=== PATIENT | male | born 1945 | race Caucasian/White ===

== ENCOUNTER 2023-12-04 19:54 | Inpatient (IN) ==
[2023-12-04 20:58] LABS: Basophils # (auto) 0.03 K/uL (0.00-0.20); Basophils % (auto) 0.4 %; Eosinophils # (auto) 0.04 K/uL (0.00-0.50); Eosinophils % (auto) 0.5 %; Hematocrit (blood only) 29.2 % (42.0-52.0); Hemoglobin 10.7 g/dl (14.0-18.0); Immature Granulocytes # (auto) 0.03 K/uL (0.01-0.20); Immature Granulocytes % (auto) 0.4 %; Lymphocytes # (auto) 2.15 K/uL (1.20-3.40); Lymphocytes % (auto) 29.1 %; Mean Corpuscular Hemoglobin 33.1 pg (25.0-34.0); Mean Corpuscular Hgb Conc 36.6 g/dL (32.0-36.0); Mean Corpuscular Volume 90.4 fL (80.0-100.0); Mean Platelet Volume 10.4 fL (9.4-12.4); Monocytes # (auto) 0.34 K/uL (0.11-0.59); Monocytes % (auto) 4.6 %; Platelet Count 164 K/uL (130-400); RDW Coefficient of Variation 13.5 % (11.5-14.5); RDW Standard Deviation 44.8 fL (36.4-46.3); Red Blood Count 3.23 M/uL (4.70-6.10); White Blood Count 7.39 K/ul (4.8-10.8)
[2023-12-04 21:18] LABS: Anion Gap 9 (3-11); BUN Creatinine Ratio 25.4 (10-20); Blood Urea Nitrogen 17 mg/dl (6-23); Calcium 8.8 mg/dl (8.6-10.3); Carbon Dioxide 26 mmol/L (21-32); Chloride 105 mmol/L (98-107); Glucose 112 mg/dl (70-99(Fasting)); Potassium 2.9 mmol/L (3.5-5.1); Sodium 140 mmol/L (136-145)
[2023-12-04 21:24] LABS: Troponin I High Sensitivity 5.7 pg/ml (0-20)
[2023-12-04 21:28] LABS: Alanine Aminotransferase < 3 U/L (7-52); Albumin Globulin Ratio 2.5 (0.9-2); Albumin Level 4.3 gm/dl (3.4-5.0); Alkaline Phosphatase 63 U/L (34-104); Aspartate Aminotransferase 9 U/L (13-39); Globulin 1.7 gm/dl (2.5-4.0); Magnesium 1.6 mg/dl (1.7-2.4)
[2023-12-04 21:33] LABS: Thyroid Stimulating Hormone 1.908 uIu/ml (0.300-4.500)
[2023-12-04] MEDS: POTASSIUM CHLORIDE / WTR 10 MEQ/100 ML PLCT IV SCH (21:33)
[2023-12-04] MEDS: MAGNESIUM SULFATE / D5W 1 GM/100 ML BAG IV SCH (21:33)
[2023-12-04 21:41] LABS: Appearance Urine Clear (Clear); Bacteria Urine Automated None Seen (None Seen); Bilirubin Urine Negative (Negative); Blood Urine Negative (Negative); Color Urine Yellow; Epithelial Cell Urine Auto 0-2 /hpf (0-2); Glucose Urine UA Negative (Negative); Ketones Urine Trace (Negative); Leukocyte Esterase Urine 2+ (Negative); Nitrite Urine Negative (Negative); Protein Urine 1+ (Negative); Specific Gravity Urine 1.022 (1.000-1.030); Urobilinogen Urine Negative (Negative); WBC Urine Automated 21-50 /hpf (0-5); pH Urine 6.5 (4.5-7.5)
[2023-12-04] MEDS ORDERED: cefTRIAXone SODIUM 2,000 MG/50 ML BAG IV STA (21:48)
--- NOTE | 2023-12-04 22:04 | Emergency Department Note ---
Impression & Plan Vasovagal syncope, Parkinson's disease, Hypomagnesemia, Acute hypokalemia ED Provider Note CHIEF COMPLAINT: Syncope, incontinent of stool HISTORY OF PRESENT ILLNESS: This 78-year-old male patient with past medical history of Parkinson's disease, dementia presents to the emergency department with complaints of a syncopal episode. The patient states he remembers being concerned that he was going to have a bowel movement. He was at home with his who suffers from dementia as well. Patient's daughters arrived in the emergency department states her mother contacted her by phone at the restaurant and asked her to come home soon as possible. The patient was incontinent of loose stool and vomited x 1. At the time she came home, the patient was in the bathroom trying to clean himself up. Patient states he has had a syncopal episode in the past, approximately 10 to 15 years ago. Daughter mentions that the patient's color was off for most of the day, he stated he did not feel well. REVIEW OF SYSTEMS: A review of systems was performed with positives and pertinent negatives listed in the history of present illness. 10 systems were reviewed and are otherwise negative. ALLERGIES: see below MEDICATIONS: see below PMH: see below SOCIAL HISTORY: see below DDx: Viral gastroenteritis, dehydration, electrolyte abnormality, UTI, foodborne process, viral illness, cardiac arrhythmia among others. PHYSICAL EXAM: Vital signs reviewed. General: Chronically ill-appearing 78-year-old male, in no significant distress. HEENT: No scleral icterus, PERRLA, neck supple. Moist mucous membranes. Cardiovascular: Regular rate and rhythm, no extra sounds. Pulmonary: Clear to auscultation bilaterally, normal work of breathing. Abdomen: Soft, nontender, nondistended, positive bowel sounds. Musculoskeletal: Atraumatic, no peripheral edema. Neurologic: Patient awake alert and pleasantly confused. Unable to remember the details of the events preceding. Flat affect with baseline tremor. Skin: Warm, dry, no rash EMERGENCY DEPARTMENT COURSE/MDM: This patient was evaluated and appeared to be in no significant distress. IV access was obtained and laboratory work was drawn. The patient was placed on the home care rn. Nursing staff finished cleaning him up from his incontinence episode. Laboratory work was obtained and reveals a potassium of 2.9 with a magnesium of 1.6. 2 g of IV magnesium was ordered as well as 2, 10 MEq potassium riders. Patient's EKG reveals a sinus rhythm. Chest x-ray was performed and is clear. UA is indicative of infection. The patient was given 2 g of IV ceftriaxone. The case was discussed with Dr. Centeno of the hospitalist service who will evaluate the patient for admission and further management. Patient and his family were made aware of the plans and agreed. MONITORING: An order for cardiac monitoring was placed and the patient is noted to be in a normal sinus rhythm at 64 beats per minute. RADIOLOGY: Chest x-ray to my interpretation reveals no evidence of focal lung consolidation or failure. Normal mediastinal silhouette. Otherwise defer to radiology is over read. EKG: To my interpretation reveals a sinus bradycardia with a short MS interval at 59 bpm. QTc of 425. No PVC, no PAC. DISPOSITION: Admission Past Med/Surg History Problem List (Updated 12/07/23 @ 11:20 by DARBY Peters) Seborrheic dermatitis Wide-complex tachycardia Near syncope Acute hypokalemia (Acute) Hypomagnesemia (Acute) Parkinson's disease (Acute) Vasovagal syncope (Acute) Social History Smoking Status: Never smoker Hx Alcohol Use: No Hx Substance Use: No Preferred Language: Ecuadorean Communication Ability: Effective Aging Room Hand Required: No Beliefs That Will Affect Care: None Current Living Situation: Spouse and Family Feels Safe at Home: Yes Assistive Devices: Walker Allergies Allergies Allergy/AdvReac Type Severity Reaction Status Date / Time No Known Allergies Allergy Unverified 12/04/23 22:39 Home Meds Home Medications Medication Instructions Recorded Confirmed ascorbic acid (vitamin C) 250 mg 250 mg PO DAILY 12/04/23 12/04/23 tablet carbidopa 25 mg-levodopa 100 mg 1 tab PO UD 12/04/23 12/04/23 tablet docusate sodium 100 mg capsule 100 mg PO DAILY PRN Constipation 12/04/23 12/04/23 (Colace) polyethylene glycol 3350 17 gram 17 g PO DAILY PRN Constipation 12/04/23 12/04/23 oral powder packet (Miralax) Previous Rx's Medication Instructions Recorded lisinopril 10 mg tablet 10 mg PO QAM #30 tabs 12/09/23 metoprolol succinate 25 mg 12.5 mg (1/2 x 25 mg) PO QAM #30 12/09/23 tablet,extended release 24 hr tabs spironolactone 25 mg tablet 25 mg PO DAILY #30 tabs 12/09/23 triamcinolone acetonide 0.025 % 1 applic EXT BID PRN Rash/Itching 12/09/23 topical cream #15 grams Results & Data (ED) Vital Signs Vital Signs - 24 hr 12/04/23 20:02 12/04/23 20:11 12/04/23 20:16 Temperature 36.6 C Temperature Source Oral Pulse Rate - Lying Pulse Rate - Sitting Pulse Rate - Standing Pulse Rate 61 64 Respiratory Rate 15 Blood Pressure - Lying Blood Pressure - Sitting Blood Pressure- Standing Blood Pressure 151/84 H Blood Pressure Mean 106 Blood Pressure Position Semi-fowlers Pulse Oximetry 98 Oxygen Delivery Method Room Air Room Air Sepsis Recent Fever Within 48 Hours No Sepsis New/Unexplained Change in Mental Status No Sepsis Action Taken by Nursing No Action Required 12/04/23 20:34 Temperature Temperature Source Pulse Rate - Lying 63 Pulse Rate - Sitting 71 Pulse Rate - Standing 70 Pulse Rate Respiratory Rate Blood Pressure - Lying 140/69 Blood Pressure - Sitting 137/65 Blood Pressure- Standing 130/63 Blood Pressure Blood Pressure Mean Blood Pressure Position Pulse Oximetry Oxygen Delivery Method Sepsis Recent Fever Within 48 Hours Sepsis New/Unexplained Change in Mental Status Sepsis Action Taken by Assisted Medications Current Medication List: was personally reviewed by me Laboratory Data Attestation: I reviewed the patient's lab results. 12/07/23 05:49 12/07/23 05:49 Lab Results 12/04/23 12/04/23 12/04/23 Range/Units 20:30 20:32 21:15 WBC 7.39 (4.8-10.8) K/ul RBC 3.23 L (4.70-6.10) M/uL Hgb 10.7 L (14.0-18.0) g/dl Hct 29.2 L (42.0-52.0) % MCV 90.4 (80.0-100.0) fL MCH 33.1 (25.0-34.0) pg MCHC 36.6 H (32.0-36.0) g/dL RDW Std Deviation 44.8 (36.4-46.3) fL RDW Coeff of Radha 13.5 (11.5-14.5) % Plt Count 164 (130-400) K/uL MPV 10.4 (9.4-12.4) fL Immature Gran % (Auto) 0.4 % Neut % (Auto) 65.0 % Lymph % (Auto) 29.1 % [place] % (Auto) 4.6 % Eos % (Auto) 0.5 % Baso % (Auto) 0.4 % Neut # (Auto) 4.80 (1.40-6.50) K/uL Lymph # (Auto) 2.15 (1.20-3.40) K/uL [place] # (Auto) 0.34 (0.11-0.59) K/uL Eos # (Auto) 0.04 (0.00-0.50) K/uL Baso # (Auto) 0.03 (0.00-0.20) K/uL Immature Gran # (Auto) 0.03 (0.01-0.20) K/uL Sodium 140 (136-145) mmol/L Potassium 2.9 L (3.5-5.1) mmol/L Chloride 105 (98-107) mmol/L Carbon Dioxide 26 (21-32) mmol/L Anion Gap 9 (3-11) BUN 17 (6-23) mg/dl Creatinine 0.67 (0.6-1.4) mg/dl Est Cr Clr Drug Dosing 103.0 ml/min eGFR 96.77 BUN/Creatinine Ratio 25.4 H (10-20) Glucose 112 H (70-99(Fasting)) mg/dl POC Glucose 109 H (70-99) mg/dl Calcium 8.8 (8.6-10.3) mg/dl Magnesium 1.6 L (1.7-2.4) mg/dl Total Bilirubin 1.0 (0.2-1.0) mg/dl AST 9 L (13-39) U/L ALT < 3 L (7-52) U/L Alkaline Phosphatase 63 (34-104) U/L Troponin I High Sens 5.7 (0-20) pg/ml Total Protein 6.0 (6.0-8.3) gm/dl Albumin 4.3 (3.4-5.0) gm/dl Globulin 1.7 L (2.5-4.0) gm/dl Albumin/Globulin Ratio 2.5 H (0.9-2) TSH 1.908 (0.300-4.500) uIu/ml Urine Color Yellow Urine Appearance Clear (Clear) Urine pH 6.5 (4.5-7.5) Ur Specific [place] 1.022 (1.000-1.030) Urine Protein 1+ H (Negative) Urine Glucose (UA) Negative (Negative) Urine Ketones Trace H (Negative) Urine Blood Negative (Negative) Urine Nitrite Negative (Negative) Urine Bilirubin Negative (Negative) Urine Urobilinogen Negative (Negative) Ur Leukocyte Esterase 2+ H (Negative) Urine WBC (Auto) 21-50 H (0-5) /hpf Urine RBC (Auto) 3-5 H (0-2) /hpf U Hyaline Cast (Auto) 3-5 H (0-2) /lpf U Epithel Cells (Auto) 0-2 (0-2) /hpf Urine Bacteria (Auto) None Seen (None Seen) Administered Medications Discontinued Medications Acetaminophen (Acetaminophen 325 Mg Tab) 650 mg PO Q4H PRN PRN Reason: Pain or Fever Stop: 01/03/24 23:31 Last Admin: 12/08/23 11:29 Dose: 650 mg Documented By: JOSEF Ascorbic Acid (Ascorbic Acid 500 Mg Tab) 250 mg PO DAILY [facility] Stop: 01/04/24 08:59 Last Admin: 12/09/23 09:15 Dose: 250 mg Documented By: Admin: 12/08/23 08:46 Dose: 250 mg Documented By: Admin: 12/07/23 08:34 Dose: 250 mg Documented By: Admin: 12/06/23 08:09 Dose: 250 mg Documented By: Admin: 12/05/23 08:21 Dose: 250 mg Documented By: JUAN Carbidopa/Levodopa (Carbidopa/Levodopa 25/100mg Tab) 1.5 tab PO 0800,1200,1600 [facility] Stop: 01/04/24 07:59 Last Admin: 12/09/23 08:33 Dose: 1.5 tab Documented By: Admin: 12/08/23 16:43 Dose: 1.5 tab Documented By: Admin: 12/08/23 13:51 Dose: 1.5 tab Documented By: Admin: 12/08/23 08:45 Dose: 1.5 tab Documented By: Admin: 12/07/23 16:56 Dose: 1.5 tab Documented By: Admin: 12/07/23 13:10 Dose: 1.5 tab Documented By: Admin: 12/07/23 08:31 Dose: 1.5 tab Documented By: Admin: 12/06/23 16:05 Dose: 1.5 tab Documented By: Admin: 12/06/23 12:21 Dose: 1.5 tab Documented By: Admin: 12/06/23 08:07 Dose: 1.5 tab Documented By: Admin: 12/05/23 16:00 Dose: 1.5 tab Documented By: Admin: 12/05/23 11:10 Dose: 1.5 tab Documented By: Admin: 12/05/23 08:21 Dose: 1.5 tab Documented By: JAUN Enoxaparin Sodium (Enoxaparin Inj 40 Mg/0.4 Ml Syr) 40 mg SQ Q24H [facility]GEN[facility] Stop: 01/04/24 07:59 Last Admin: 12/09/23 08:34 Dose: 40 mg Documented By: Admin: 12/08/23 08:45 Dose: 40 mg Documented By: Admin: 12/07/23 08:36 Dose: 40 mg Documented By: Admin: 12/06/23 08:10 Dose: 40 mg Documented By: Admin: 12/05/23 08:21 Dose: 40 mg Documented By: JUAN Potassium Chloride ([place] / Wtr) 10 meq in 100 mls @ 100 mls/hr IV Q1H EUGENIA Stop: 12/04/23 23:29 Last Infusion: 12/04/23 23:41 Dose: Infused Documented By: Admin: 12/04/23 22:35 Dose: 100 mls/hr Documented By: Infusion: 12/04/23 22:33 Dose: Infused Documented By: Admin: 12/04/23 21:33 Dose: 100 mls/hr Documented By: NELSON Magnesium Sulfate/Dextrose (Magnesium Sulfate / D5w) 1 gm in 100 mls @ 200 mls/hr IV Q30M EUGENIA Stop: 12/04/23 22:29 Last Infusion: 12/04/23 23:41 Dose: Infused Documented By: Admin: 12/04/23 22:35 Dose: 200 mls/hr Documented By: Infusion: 12/04/23 22:03 Dose: Infused Documented By: Admin: 12/04/23 21:33 Dose: 200 mls/hr Documented By: NELSON Sodium Chloride (Nss) 1,000 mls @ 75 mls/hr IV .[id number] EUGENIA Stop: 12/05/23 12:51 Last Infusion: 12/05/23 11:11 Dose: Infused Documented By: Admin: 12/05/23 00:01 Dose: 75 mls/hr Documented By: ANUPAMA Ceftriaxone Sodium (Rocephin) 2,000 mg in 50 mls @ 100 mls/hr IV Q24H [facility] Stop: 12/15/23 00:00 Last Infusion: 12/05/23 00:32 Dose: Infused Documented By: Admin: 12/05/23 00:02 Dose: 100 mls/hr Documented By: ANUPAMA Magnesium Sulfate/Dextrose (Magnesium Sulfate / D5w) 1 gm in 100 mls @ 50 mls/hr IV ONE ONE Stop: 12/06/23 10:57 Last Infusion: 12/06/23 11:21 Dose: Infused Documented By: Admin: 12/06/23 09:18 Dose: 50 mls/hr Documented By: ORIN Lisinopril (Lisinopril 2.5 Mg Tab) [facility] Stop: 01/05/24 08:59 Last Admin: 12/06/23 08:50 Dose: 2.5 mg Documented By: ORIN Lisinopril (Lisinopril 5 Mg Tab) 5 [facility] [place] Stop: 01/06/24 08:59 Last Admin: 12/08/23 08:47 Dose: 5 mg Documented By: Admin: 12/07/23 08:33 Dose: 5 mg Documented By: ORIN Metoprolol Succinate (Metoprolol Succ 25mg Ext Rel Tab) 12.5 mg [facility] Stop: 01/05/24 13:29 Last Admin: 12/09/23 09:16 Dose: 12.5 mg Documented By: Admin: 12/08/23 08:46 Dose: 12.5 mg Documented By: Admin: 12/07/23 08:35 Dose: 12.5 mg Documented By: Admin: 12/06/23 14:35 Dose: 12.5 mg Documented By: ORIN Miscellaneous Information (Patient's Allergy Info Needs Entered) 1 each N/A NOW STA Stop: 12/04/23 22:28 Last Admin: 12/04/23 22:39 Dose: 1 each Documented By: NELSON Potassium Chloride (Potassium Chloride Pwd 20 Meq Pack) 40 meq PO NOW STA Stop: 12/04/23 22:25 Last Admin: 12/05/23 00:48 Dose: 40 meq Documented By: CR Potassium Chloride (Potassium Chloride Crtab 20 Meq Tabcr) 40 meq PO NOW STA Stop: 12/05/23 16:04 Last Admin: 12/05/23 16:34 Dose: 40 meq Documented By: JUAN Spironolactone (Spironolactone 25 Mg Tab) 25 mg PO DAILY [facility] Stop: 01/05/24 08:59 Last Admin: 12/09/23 09:15 Dose: 25 mg Documented By: Admin: 12/08/23 08:48 Dose: 25 mg Documented By: Admin: 12/07/23 08:34 Dose: 25 mg Documented By: Admin: 12/06/23 08:50 Dose: 25 mg Documented By: ORIN Triamcinolone Acetonide (Triamcinolone Acet 0.025% Cr 15 Gm Tube) 1 appln EXT BID PRN PRN Reason: pruritis Stop: 01/06/24 11:00 Last Admin: 12/07/23 13:10 Dose: 1 appln Documented By: ORIN Discharge Plan Visit Data Chief Complaint: Syncope Stated Complaint: SYNCOPE ED Provider: Peyton Castaneda Discharge Problem: Vasovagal syncope, Parkinson's disease, Hypomagnesemia, Acute hypokalemia Patient Disposition: Admitted As Inpatient Discharge Instructions Interventions: ED Discharge Assessment Last Done: 12/04/23 22:57 Discharge Problem: Parkinson's disease Qualifiers: Dyskinesia presence: with dyskinesia Fluctuating manifestations: with fluctuating manifestations Qualified Code(s): G20.B2 - Parkinson's disease with dyskinesia, with fluctuations
[2023-12-04] MEDS: Patient's ALLERGY Info needs ENTERED STA (22:39)
--- NOTE | 2023-12-04 22:50 | History & Physical Report ---
Date of Service December 04, 2023 Assessment & Plan (1) Near syncope: Plan: 78-year-old male with past medical history significant for Parkinson disease who recently moved with his to [facility] from [facility] and currently living with his daughter and the plan for assisted living soon presents because of fall and near syncope. As per patient he fell in the hallway once. And was also little woozy and almost passing out. When he fell he did not hit his head. Question of loss of consciousness but patient declines it. Patient is able to give his history. Currently resting comfortably and hemodynamically stable. Denies any headache. Vision is okay. No runny nose or sore throat or cough. No fevers. Appetite is okay. No difficulty swallowing. No chest pain or shortness of. No nausea. No abdominal pain. Somewhat constipated. Micturating okay. History of syncope and hypertension.. As per PCP notes losartan/ hydrochlorothiazide and Flomax was discontinued due to orthostatic hypotension. As per PCP notes symptoms stable off of Flomax for BPH. And hypertension is stable off of losartan hydrochlorothiazide. Moderate cognitive impairment with Mini-Mental exam 1530. Near syncope Fall Will check orthostatics Gentle fluids Will get echo Follow repeat labs Monitor in med/telemetry PT OT when stable Parkinson disease Continues home medications UTI Possibly contributing to symptoms On Rocephin Will follow cultures Hypokalemia and hypomagnesia Will replace Follow repeat labs Constipation Continue stool softeners as needed History of vitamin B12 deficiency Gets B12 shots Anemia Hemoglobin 10.7 Will check stool for Hemoccult Iron studies, vitamin B12 folate levels Follow labs DVT prophylaxis Lovenox Disposition Med/telemetry Full code. History of Present Illness Chief Complaint: Near syncope and fall Primary Care Provider: DARBY Castle 78-year-old male with past medical history significant for Parkinson disease who recently moved with his to [facility] from [facility] and currently living with his daughter and the plan for assisted living soon presents because of fall and near syncope. As per patient he fell in the hallway once. And was also little woozy and almost passing out. When he fell he did not hit his head. Question of loss of consciousness but patient declines it. Patient is able to give his history. Currently resting comfortably and hemodynamically stable. Denies any headache. Vision is okay. No runny nose or sore throat or cough. No fevers. Appetite is okay. No difficulty swallowing. No chest pain or shortness of. No nausea. No abdominal pain. Somewhat constipated. Micturating okay. History of syncope and hypertension.. As per PCP notes losartan/ hydrochlorothiazide and Flomax was discontinued due to orthostatic hypotension. As per PCP notes symptoms stable off of Flomax for BPH. And hypertension is stable off of losartan hydrochlorothiazide. Moderate cognitive impairment with Mini-Mental exam . Past medical history. As mentioned above. Past surgical history. No surgical history on file. Social history. . No smoking. Alcohol rarely. No drug use Family history. Mother had dementia. Father had heart attack. Allergies Allergy/AdvReac Type Severity Reaction Status Date / Time No Known Allergies Allergy Unverified 12/04/23 22:39 Home Medications Medication Instructions Recorded Confirmed Type ascorbic acid (vitamin C) 250 mg 250 mg PO DAILY 12/04/23 12/04/23 History tablet carbidopa 25 mg-levodopa 100 mg 1 tab PO UD 12/04/23 12/04/23 History tablet docusate sodium 100 mg capsule 100 mg PO DAILY PRN Constipation 12/04/23 12/04/23 History (Colace) polyethylene glycol 3350 17 gram 17 g PO DAILY PRN Constipation 12/04/23 12/04/23 History oral powder packet (Miralax) Past Med/Surg History Problem List (Updated 12/04/23 @ 22:47 by Andrew Centeno MD) Near syncope Acute hypokalemia (Acute) Hypomagnesemia (Acute) Parkinson's disease (Acute) Vasovagal syncope (Acute) Social History Smoking Status: Never smoker Hx Alcohol Use: No Hx Substance Use: No Preferred Language: Bengali Communication Ability: Effective Director Of Content And Programming Required: No Beliefs That Will Affect Care: None Current Living Situation: Spouse and Family Other Information That Helps Us Care for You: No Feels Safe at Home: Yes Safety Concerns: Feels Safe At This Time Assistive Devices: None Review of Systems Review of Systems: All systems reviewed & are unremarkable except as noted in HPI & below Physical Exam Physical Exam: General- Not in acute distress Head- atraumatic Eyes- PERRL. ENT- oropharynx clear Neck- supple, no JVD. Lungs- clear to auscultation no wheezing or crackles Heart- regular rate and rhythm; no murmur, no gallop. Abdomen- normal bowel sounds, soft, nontender, no distension Extremities- no pretibial edema, no erythema seen Neuro- alert, oriented PERRL, no facial palsy; no dysarthria; moves extremities power 4-5/5 in all extremities Results & Data Results & Data Vital Signs (Past 12 Hours) Vital Signs Temp Pulse Resp BP Pulse Ox O2 Del Method 12/04/23 20:16 Room Air 12/04/23 20:11 64 12/04/23 20:02 36.6 C 61 15 151/84 H 98 Room Air Diagnostic Findings Laboratory Results WBC 7.39 K/ul (4.8-10.8) 12/04/23 20:30 RBC 3.23 M/uL (4.70-6.10) L 12/04/23 20:30 Hgb 10.7 g/dl (14.0-18.0) L 12/04/23 20:30 Hct 29.2 % (42.0-52.0) L 12/04/23 20:30 MCV 90.4 fL (80.0-100.0) 12/04/23 20:30 MCH 33.1 pg (25.0-34.0) 12/04/23 20:30 MCHC 36.6 g/dL (32.0-36.0) H 12/04/23 20:30 RDW Std Deviation 44.8 fL (36.4-46.3) 12/04/23 20:30 RDW Coeff of Radha 13.5 % (11.5-14.5) 12/04/23 20:30 Plt Count 164 K/uL (130-400) 12/04/23 20:30 MPV 10.4 fL (9.4-12.4) 12/04/23 20:30 Immature Gran % (Auto) 0.4 % 12/04/23 20:30 Neut % (Auto) 65.0 % 12/04/23 20:30 Lymph % (Auto) 29.1 % 12/04/23 20:30 [place] % (Auto) 4.6 % 12/04/23 20:30 Eos % (Auto) 0.5 % 12/04/23 20:30 Baso % (Auto) 0.4 % 12/04/23 20:30 Neut # (Auto) 4.80 K/uL (1.40-6.50) 12/04/23 20:30 Lymph # (Auto) 2.15 K/uL (1.20-3.40) 12/04/23 20:30 [place] # (Auto) 0.34 K/uL (0.11-0.59) 12/04/23 20:30 Eos # (Auto) 0.04 K/uL (0.00-0.50) 12/04/23 20:30 Baso # (Auto) 0.03 K/uL (0.00-0.20) 12/04/23 20:30 Immature Gran # (Auto) 0.03 K/uL (0.01-0.20) 12/04/23 20:30 Sodium 140 mmol/L (136-145) 12/04/23 20:30 Potassium 2.9 mmol/L (3.5-5.1) L 12/04/23 20:30 Chloride 105 mmol/L (98-107) 12/04/23 20:30 Carbon Dioxide 26 mmol/L (21-32) 12/04/23 20:30 Anion Gap 9 (3-11) 12/04/23 20:30 BUN 17 mg/dl (6-23) 12/04/23 20:30 Creatinine 0.67 mg/dl (0.6-1.4) 12/04/23 20:30 Est Cr Clr Drug Dosing 103.0 ml/min 12/04/23 20:30 eGFR 96.77 12/04/23 20:30 BUN/Creatinine Ratio 25.4 (10-20) H 12/04/23 20:30 Glucose 112 mg/dl (70-99(Fasting)) H 12/04/23 20:30 POC Glucose 109 mg/dl (70-99) H 12/04/23 20:32 Calcium 8.8 mg/dl (8.6-10.3) 12/04/23 20:30 Magnesium 1.6 mg/dl (1.7-2.4) L 12/04/23 20:30 Total Bilirubin 1.0 mg/dl (0.2-1.0) 12/04/23 20:30 AST 9 U/L (13-39) L 12/04/23 20:30 ALT < 3 U/L (7-52) L 12/04/23 20:30 Alkaline Phosphatase 63 U/L (34-104) 12/04/23 20:30 Troponin I High Sens 5.7 pg/ml (0-20) 12/04/23 20:30 Total Protein 6.0 gm/dl (6.0-8.3) 12/04/23 20:30 Albumin 4.3 gm/dl (3.4-5.0) 12/04/23 20: Globulin 1.7 gm/dl (2.5-4.0) L 12/04/23 20:30 Albumin/Globulin Ratio 2.5 (0.9-2) H 12/04/23 20:30 TSH 1.908 uIu/ml (0.300-4.500) 12/04/23 20:30 Urine Color Yellow 12/04/23 21:15 Urine Appearance Clear (Clear) 12/04/23 21:15 Urine pH 6.5 (4.5-7.5) 12/04/23 21:15 Ur Specific [place] 1.022 (1.000-1.030) 12/04/23 21:15 Urine Protein 1+ (Negative) H 12/04/23 21:15 Urine Glucose (UA) Negative (Negative) 12/04/23 21:15 Urine Ketones Trace (Negative) H 12/04/23 21:15 Urine Blood Negative (Negative) 12/04/23 21:15 Urine Nitrite Negative (Negative) 12/04/23 21:15 Urine Bilirubin Negative (Negative) 12/04/23 21:15 Urine Urobilinogen Negative (Negative) 12/04/23 21:15 Ur Leukocyte Esterase 2+ (Negative) H 12/04/23 21:15 Urine WBC (Auto) 21-50 /hpf (0-5) H 12/04/23 21:15 Urine RBC (Auto) 3-5 /hpf (0-2) H 12/04/23 21:15 U Hyaline Cast (Auto) 3-5 /lpf (0-2) H 12/04/23 21:15 U Epithel Cells (Auto) 0-2 /hpf (0-2) 12/04/23 21:15 Urine Bacteria (Auto) None Seen (None Seen) 12/04/23 21:15 Code Status & VTE Plan Code Status ECG. Sinus bradycardia with short NE rate of 59. No acute ST changes seen. VTE Prophylaxis Plan VTE Prophylaxis will be ordered: Yes
--- OUTSIDE RECORDS SUMMARY | 2023-12-04 23:13 | External Medical Summary | Summary of Care ---
Author Name Unknown Organization [facility] Address [address] [place] [address] Phone [phone] Care Team Providers Care Tufting Machine Operator Name Role Phone Jennifer Modi Primary Care Provider Reason for Visit * Reason Onset Date Comments Medication Refill 11/21/2023 Encounter Details Date Type Department Care Team (Late st Contact Info) Description 11/21/2023 Refill NeurologyAlex [address] [place] [address] Mee Bradley PA-C [address] [facility] [address] Allergies No known active allergiesdocumented as of this encounter (statuses as of 11/21/2023) Medications Medication Sig Dispensed Refills Start Date End Date Status Acetaminophen 500 MG Oral Tablet (Tylenol) Take 1 Tablet by mouth every 6 hours as needed. Active Docusate Sodium 100 MG Oral Capsule (Colace) Take 1 Capsule by mouth as needed for Constipation. Active Polyethylene Glycol 3350 4 GM Oral Packet Take by mouth as needed for Constipation. Active Vitamin C 250 MG Oral Tablet (Ascorbic Acid) Take 1 Tablet by mouth in the morning. Active Carbidopa-Levodo pa 25-100 MG Oral Tablet (Sinemet) Take 1.5 tablets at 8am, 12pm and 4pm. See office instructions for taper. 405 Tablet 2 11/21/2023 Active Carbidopa-Levodo pa 25-100 MG Oral Tablet (Sinemet) Take 1.5 tablets at 8am, 12pm and 4pm. See office instructions for taper. 135 Tablet 2 10/27/2023 4 Discontinue d(Refill) Hospital, Clinic, or Other Facility Administered Medication Ordered Dose Route Frequency Start Date End Date Status Vitamin B-12 (Cyanocobalamin) inj 1,000 mcgIndications:Vitamin B 12 deficiency 1000 mcg IM [id number] 10/27/2023 09/27/2024 Active documented as of this encounter (statuses as of 11/21/2023) Active Problems Problem Noted Date Diagnosed Date Parkinson's disease 10/21/2023 documented as of this encounter (statuses as of 11/21/2023) Immunizations Name Administration Dates Next Due COVID-19 mRNA, LNP-s, No Pre serve, 2-Dose Series (Moderna) 06/08/2021,12/14/2020,05/06/2020,04/08 COVID-19, MRNA-LNP, 23-24, P F, 50 MCG/0.5 mL, 12 YRS AND ABOVE, IM (MODERNA-Spikevax) 11/13/2022 Covid-19, Mrna, Lnp-s, Pf, B ivalent, 50 Mcg, IM, 12 yrs and above (Moderna) 11/16/2021 Pneumococcal Conjugate Vacc, 13 Valent (Prevnar) 02/27/2015 Pneumococcal Conjugate Vacci ne, 20-valent ([id number]) 12/13/2022 Pneumococcal Polysaccharide PPV23 (Pneumovax) 10/29/2008 Seasonal Influenza Virus Vac cine, Unspecified Formulation 11/24/2022,11/28/2021,11/28/2020,11/03,12/15/2016 Seasonal Influenza, High Dos e, Trivalent, PF, IM (Fluzone HD) 11/21/2023 TDAP (age 10 and older)(Boostrix) 08/30/2012,02/2008 Varicella Zoster Vaccine (Adult) 10/29/2008 Zoster Vaccine Recombinant (Shingrix) ,03/12/2018,01/03/2018,10/04 documented as of this encounter Social History Tobacco Use Types Packs/Day Years Used Date Smoking Tobacco: Never Smokeless Tobacco: Never Alcohol Use Standard Drinks/Week Comments Yes 0 (1 standard drink = 0.6 oz pur e alcohol) very rarely Utilities Answer Date Recorded Do you have trouble paying y our heating, water, or electric bill? (Adult - for ages 18 years and over) Not on file 09/26/2023 Is your family able to pay t he heat, water, or electric bill? (Household - for ages 0-17 years) Not on file 09/26/2023 Does your family have access to good internet? (Household - for ages 0-17 years) Not on file 09/26/2023 Social Connections Answer Date Recorded How often do you feel lonely or isolated from those around you? (Adult - for ages 18 years and over) Not on file 09/26/2023 Sex and Gender Information Value Date Recorded Sex Assigned at Not on file Gender Identity Not on file Sexual Orientation Not on file Job Start Date Occupation Industry Not on file Not on file Not on file documented as of this encounter Miscellaneous Notes * Telephone Encounter - Mee Bradley PA-C - 11/21/2023 9:29 AM EDTSigned Prescriptions: Disp Refills Carbidopa-Levodopa 25-100 MG Oral Tablet (*405 Ta*2 Sig: Take 1.5 tablets at 8am, 12pm and 4pm. See office instructions for taper. Authorizing Provider: MEE BRADLEY * Telephone Encounter - Beverly Ames LPN - 11/21/2023 8:59 AM EDT Pharmacy requesting 90 day supply documented in this encounter Plan of Treatment Upcoming Encounters Date Type Department Care Team (Late st Contact Info) Description 11/21/2023 11:00 AM EDT Immunization Ancillary [facility] [address] [address] Nurse Yandel Lee [address] [place] [id number] Need for prophylactic vaccination and inoculation against influenza* 01/12/2024 7:00 AM EST Office Visit Neurology [facility] [address] [place] [address] Mee Bradley PA-C [address] [facility] [place] [address] Health Maintenance Due Date Last Done Comments Depression Screening 1957 Hepatitis C Screening 07/29/1963 Adult Wellness Visit 07/29/2013 DTap/Tdap Vaccines (3 - Td or Tdap) 08/30/2022 08/30/2012, 11/21/2008 COVID-19 Vaccine ( season) 2023 11/13/2022, 11/16/2021, 06/08/2021, Additional history exists Zoster Vaccines Completed 03/16/2018, 02/22, 01/03/2018, Additional history exists Pneumococcal Vaccine: 65+ Years Completed 12/13/2022, 02/27/2015, 10/29/2008 Influenza Vaccine (FLU shot) Completed , 11/24/2022, 11/28/2021, Additional history exists HPV (Gardasil) Vaccine Aged Out No lo nger eligible based on patient's age to complete this topic Hepatitis B Vaccine Aged Out No longe r eligible based on patient's age to complete this topic MENINGOCOCCAL (MENACTRA/MENVEO) Aged Out No longer eligible based on patient's age to complete this topic documented as of this encounter Medical Devices Not on filedocumented as of this encounter Care Teams Tufting Machine Operator Relationship Specialty Start Date End Date Jennifer Modi CRNP [address] [place] [address] PCP - General Nurse Practitioner 10/21/23 documented as of this encounter
--- OUTSIDE RECORDS SUMMARY | 2023-12-04 23:13 | External Medical Summary | Summary of Care ---
Author Name Unknown Organization [facility] Address [address] [place] [address] Phone [phone] Care Team Providers Care [employer] Comb[employer] Teacher Name Role Phone Jennifer Modi Primary Care Provider Reason for Referral * Evaluate & Treat - Unlimited Visits (Within 10 days (routine)) - Authorized Specialty Diagnoses / Procedures Referred By Heather tsang Referred To Contact Neurology Diagnoses Parkinson's disease, unspecified whether dyskinesia present, unspecified whether manifestations fluctuate (HCC) Jennifer Modi CRNP [address] [facility] [address] Referral ID Status Reason Start Date Expiration Date Visits Requested Visits Authorized [id number] Authorized Specialty Services Required 10/21/[phone] Question Answer Referral Priority Within 10 days (routine) Where should this appointment be scheduled? [facility] Is this referral being placed for insurance purposes ONLY No, patient needs appointment [facility] NEUROLOGY REFERRAL QUESTIONS Other Conditions Comments Parkinson's disease Reason for Visit * Reason Comments NEW PATIENT Patient presents in office today to establish care -- does have concerns that they would like to discuss. Encounter Details Date Type Department Care Team (Latest Contact Info) Description 10/21/2023 7:00 AM EDT Office Visit Family Practice [facility] [address] [place] [address] Jennifer Modi CRNP [address] [place] [address] Parkinson's disease, unspecified whether dyskinesia present, unspecified whether manifestations fluctuate (HCC)*; Moderate cognitive impairment; HTN, goal below 140/90; Asymptomatic bilateral carotid artery stenosis; Orthostatic hypotension; History of syncope; Iron deficiency anemia, unspecified iron deficiency anemia type; Vitamin D deficiency; Enlarged prostate; Constipation, unspecified constipation type Allergies No known active allergiesdocumented as of this encounter (statuses as of 10/21/2023) Medications Medication Sig Dispensed Refills Start Date [...] Tablet by mouth in the morning. Active Carbidopa-Levodopa 25-100 MG Oral Tablet (Sinemet) Take 2 Tablets by mouth in the morning and 2 Tablets at noon and 2 Tablets before bedtime. Active documented as of this encounter (statuses as of 10/21/2023) Active Problems Problem Noted Date Diagnosed Date Parkinson's disease 10/21/2023 documented as of this encounter (statuses as of 10/21/2023) Immunizations Name Administration Dates Next Due COVID-19 mRNA, LNP-s, No Pre serve, 2-Dose Series (Moderna) 06/08/2021,12/14/2020,05/06/2020,04/08 COVID-19, MRNA-LNP, 23-24, P F, 50 MCG/0.5 mL, 12 YRS AND ABOVE, IM (MODERNA-Spikevax) 11/13/2022 Covid-19, Mrna, Lnp-s, Pf, B ivalent, 50 Mcg, IM, 12 yrs and above (Moderna) 11/16/2021 Pneumococcal Conjugate Vacc, 13 Valent (Prevnar) 02/27/2015 Pneumococcal Conjugate Vacci ne, 20-valent ([id number]) 12/13/2022 Pneumococcal Polysaccharide PPV23 (Pneumovax) 10/29/2008 Seasonal Influenza Virus Vac cine, Unspecified Formulation 11/24/2022,11/28/2021,11/28/2020,11/03,12/15/2016 TDAP (age 10 and older)(Boostrix) 08/30/2012,02/2008 Varicella Zoster Vaccine (Adult) 10/29/2008 Zoster Vaccine Recombinant (Shingrix) ,03/12/2018,01/03/2018,10/04 documented as of this encounter Social History Tobacco Use Types Packs/Day Years Used Date Smoking Tobacco: Never Smokeless Tobacco: Never Tobacco Cessation:Counseling Given: Not Answered Alcohol Use Standard Drinks/Week Comments Yes 0 [...] on file documented as of this encounter Last Filed Vital Signs Vital Sign Reading Time Taken Comments Blood Pressure 128/68 10/21/2023 7:08 AM EDT Pulse 64 10/21/2023 7:08 AM EDT Temperature - - Respiratory Rate 16 10/21/2023 7:08 AM EDT Oxygen Saturation 98% 10/21/2023 7:08 AM EDT Inhaled Oxygen Concentration - - Weight 85.7 kg (189 lb) 10/21/2023 7:08 AM EDT Height 181.6 cm (5' 11.5") 10/21/2023 7:08 AM ED T Body Mass Index 25.99 10/21/2023 7:08 AM EDT documented in this encounter Progress Notes * Jennifer Modi CRNP - 10/21/2023 7:06 AM EDT New patient Family Medicine Visit CC: Chief Complaint Patient presents with NEW PATIENT Patient presents in office today to establish care -- does have concerns that they would like to discuss. History of Present Illness: Jos Khan is a 78 year old male presenting with his and daughter today to establish care. [facility] Lives with daughter in [place]. Parkinsonism- last neuro was July 2023- Increased sinemet- felt like this did not help much. [place] like PT and ST did not help much. +LEFT ARM Tremor +stuttering -Recent falls Cardiology-for HTN and syncope ECHO was reassuring EKG in june reasuring Losartan/hctz was discontinued. Had scheduled follow up appt in January. Medications have been adjusted flomax stopped and losartan hctz stopped due to orthostatic hypotension Social History Socioeconomic History Marital status: Spouse name: Not on file Number of children: Not on file Years of education: Not on file Highest education level: Not on file Occupational History Not on file Tobacco Use Smoking status: Not on file Smokeless tobacco: Not on file Substance and Sexual Activity Alcohol use: Not on file Drug use: Not on file Sexual activity: Not on file Other Topics Concern Not on file Social History Narrative Not on file Social Determinants of Health Financial Resource Strain: Not on file Food Insecurity: Not on file Transportation Needs: Not on file Social Connections: Unknown (09/26/2023) Social Connections How often do you feel lonely or isolated from those around you? (Adult - for ages 18 years and over): Not on file Housing Stability: Not on file PMH: No past medical history on file. No past surgical history on file. No current outpatient medications on file. No current facility-administered medications for this visit. Review of patient's allergies indicates: No Known Allergies There is no immunization history on file for this patient. Review of Systems: Review of Systems Constitutional: Negative for fatigue and fever. Respiratory: Negative for shortness of breath. Cardiovascular: Negative for chest pain. Gastrointestinal: Negative for abdominal pain. Musculoskeletal: Positive for gait problem. Neurological: Positive for tremors and speech difficulty. Negative for dizziness, syncope, light-headedness, numbness and headaches. Psychiatric/Behavioral: Negative for sleep disturbance. Physical Exam: Filed Vitals: 10/21/23 0708 BP: 128/68 Pulse: 64 Resp: 16 SpO2: 98% Weight: 85.7 kg (189 lb) Height: 1.816 m (5' 11.5") Physical Exam Vitals and nursing note reviewed. HENT: Head: Normocephalic. Nose: Nose normal. Eyes: Pupils: Pupils are equal, round, and reactive to light. Cardiovascular: Rate and Rhythm: Normal rate and regular rhythm. Pulmonary: Effort: Pulmonary effort is normal. Breath sounds: Normal breath sounds. Abdominal: General: Bowel sounds are normal. Palpations: Abdomen is soft. There is no mass. Tenderness: There is no abdominal tenderness. Musculoskeletal: General: Normal range of motion. Cervical back: Normal range of motion. Skin: General: Skin is warm and dry. Neurological: General: No focal deficit present. Mental Status: He is alert and oriented to person, place, and time. Motor: Tremor present. Gait: Gait abnormal. Comments: Shuffling, slow gait Stutters with speech Psychiatric: Mood and Affect: Mood normal. Behavior: Behavior normal. Thought Content: Thought content normal. Cognition and Memory: Cognition is impaired. Memory is impaired. Judgment: Judgment normal. Assessment and Plan: 1. Parkinson's disease, unspecified whether dyskinesia present, unspecified whether manifestations fluctuate (HCC) Continue sinemet Declines PT/OT/ST Lives with daughter in basement apt He is fall risk - ADULT NEUROLOGY REFERRAL OP - COMPREHENSIVE METABOLIC PANEL; Future - COMPREHENSIVE METABOLIC PANEL Forms for ezra completed 2. Moderate cognitive impairment Mini mental is 15/30(SLUMS) Suspected dementia DAUGHTER WORKING on updated poa 3. HTN, goal below 140/90 Stable off of losartan /hctz - EKG; Future 4. Asymptomatic bilateral carotid artery stenosis [facility] 5. Orthostatic hypotension Resolved with stopping flomax and losartan hctz 6. History of syncope None since june 7. Iron deficiency anemia, unspecified iron deficiency anemia type recheck - CBC WITH WBC DIFFERENTIAL AND ANEMIA REFLEX WORKUP; Future - CBC WITH WBC DIFFERENTIAL AND ANEMIA REFLEX WORKUP - RETICULOCYTE PANEL 8. Vitamin D deficiency recheck - 25-HYDROXY VITAMIN D; Future - 25-HYDROXY VITAMIN D 9. Enlarged prostate Symptoms stable off of flomax 10. Constipation, unspecified constipation type Continue colace daily Continue miralax I have advised the patient to call our office incase of any worsening or new symptoms. I spent a total of Greater than 55 mins (exact time 85 mins) on the date of service in preparation,delivery, and documentation of the care provided to Jos Khan excluding any time spent inthe performance of separately billed services. Hayden, MSN, DARBY [facility] documented in this encounter Nursing Notes * Apolonia Potter MED ASSIST - 10/21/2023 7:03 AM EDT The patient has been properly identified by confirmation of name and date of . Chief Complaint Patient presents with NEW PATIENT Patient presents in office today to establish care -- does have concerns that they would like to discuss. documented in this encounter Plan of Treatment Upcoming Encounters Date Type Department Care Team (Late st Contact Info) Description 10/26/2023 7:30 AM EDT [facility] [address] [facility] [place] [id number] 10/27/2023 8:00 AM EDT Office Visit Neu[facility] [address] [facility] [address] Mee Bradley PA-C 21 [facility] [place] [address] Pending Results Name Type Priority Associated Diagnoses Date /Time COMPREHENSIVE METABOLIC PANEL Lab Routine Parkinson's disease, unspecified whether dyskinesia present, unspecified whether manifestations fluctuate (HCC) 10/21/2023 8:14 AM EDT CBC WITH WBC DIFFERENTIAL AND ANEMIA REFLEX WORKUP Lab Routine Iron deficiency anemia, unspecified iron deficiency anemia type 10/21/2023 8:14 AM EDT 25-HYDROXY VITAMIN D Lab Routine Vitamin D deficiency 10/21/2023 8:14 AM EDT ANEMIA REFLEX CHEMISTRY HOLD Lab Routine Iron deficiency anemia, unspecified iron deficiency anemia type 10/21/2023 8:14 AM EDT RETICULOCYTE PANEL Lab Routine Iron deficiency anemia, unspecified iron deficiency anemia type 10/21/2023 8:14 AM EDT Scheduled Orders Name Type Priority Associated Diagnoses Orde r Schedule COMPREHENSIVE METABOLIC PANEL Lab Routine Parkinson's disease, unspecified whether dyskinesia present, unspecified whether manifestations fluctuate (HCC) Expected: 10/21/2023 (Approximate), Expires: 10/20/2024 CBC WITH WBC DIFFERENTIAL AND ANEMIA REFLEX WORKUP Lab Routine Iron deficiency anemia, unspecified iron deficiency anemia type Expected: 10/21/2023 (Approximate), Expires: 10/20/2024 25-HYDROXY VITAMIN D Lab Routine Vitamin D deficiency Expected: 10/21/2023 (Approximate), Expires: 10/20/2024 EKG EKG Routine HTN, goal below 140/90 Expected: 10/21/2023 (Approximate), Expires: 11/20/2024 VASC DUPLEX CAROTID BILAT Medical Imaging Routine Asymptomatic bilateral carotid artery stenosis Ordered: 10/21/2023 Scheduled Referrals Name Type Priority Associated Diagnoses Orde r Schedule ADULT NEUROLOGY REFERRAL OP Referral Within 10 days (routine) Parkinson's disease, unspecified whether dyskinesia present, unspecified whether manifestations fluctuate (HCC) Ordered: 10/21/2023 Health Maintenance Due Date Last Done Comments Depression Screening 1957 Hepatitis C Screening 07/29/1963 Adult Wellness Visit 07/29/2013 DTap/Tdap Vaccines (3 - Td or Tdap) 08/30/2022 08/30/2012, 11/21/2008 COVID-19 Vaccine ( season) 2023 11/13/2022, 11/16/2021, 06/08/2021, Additional history exists Influenza Vaccine (FLU shot) (#1) 2023 11/24/2022, 11/28/2021, 11/28/2020, Additional history exists Zoster Vaccines Completed 03/16/2018, 02/22, 01/03/2018, Additional history exists Pneumococcal Vaccine: 65+ Years Completed 12/13/2022, 02/27/2015, 10/29/2008 HPV (Gardasil) Vaccine Aged Out No lo nger eligible based on patient's age to complete this topic Hepatitis B Vaccine Aged Out No longe r eligible based on patient's age to complete this topic MENINGOCOCCAL (MENACTRA/MENVEO) Aged Out No longer eligible based on patient's age to complete this topic documented as of this encounter Medical Devices Not on filedocumented as of this encounter Procedures Procedure Name Priority Date/Time Associated Diagnosis Comments ANEMIA CBC Routine 10/21/2023 8:14 AM EDT Iron deficiency anemia, unspecified iron deficiency anemia type DIFFERENTIAL, AUTOMATED Routine 10/21/2023 8:14 AM EDT Iron deficiency anemia, unspecified iron deficiency anemia type documented in this encounter Results * (ABNORMAL) DIFFERENTIAL, AUTOMATED (10/21/2023 8:14 AM EDT) WBC 3.79(L) 4.00 - 10.80 K/uL 10/21/2023 8:41 AM EDT [facility] Neutrophils % 44.9 40.0 - 75.0 % 10/21/2023 8:41 AM EDT [facility] Lymphocytes % 46.7(H) 18.0 - 42.0 % 10/21/2023 8:41 AM EDT [facility] Monocytes % 6.6 1.0 - 11.0 % 10/21/2023 8:41 AM EDT [facility] Eosinophils % 1.3 0.0 - 6.0 % 10/21/2023 8:41 AM EDT [facility] Basophils % 0.5 0.0 - 2.0 % 10/21/2023 8:41 AM EDT [facility] Absolute Neutrophils 1.70(L) 1.80 - 7.70 K/uL 10/21/2023 8:41 AM EDT [facility] Absolute Lymphocytes 1.77 1.00 - 4.80 K/ul 10/21/2023 8:41 AM EDT [facility] Absolute Monocytes 0.25 0.00 - 1.10 K/uL 10/21/2023 8:41 AM EDT [facility] Absolute Eosinophils 0.05 0.00 - 0.70 K/uL 10/21/2023 8:41 AM EDT [facility] Absolute Basophils 0.02 0.00 - 0.20 K/uL 10/21/2023 8:41 AM EDT [facility] Blood Venous blood specimen / Unknown Venipuncture / Unknown 10/21/2023 8:14 AM EDT 10/21/2023 8:14 AM EDT Jennifer PASTOR LAB BLOOD ARMIN MCALLISTER [facility] [place] [address] * (ABNORMAL) ANEMIA CBC (10/21/2023 8:14 AM EDT) WBC 3.79(L) 4.00 - 10.80 K/uL 10/21/2023 8:41 AM EDT [facility] RBC 3.59 4.50 - 5.25 M/uL 10/21/2023 8:41 AM EDT [facility] HGB 11.9(L) 14.0 - 16.8 g/dL 10/21/2023 8:41 AM EDT [facility] Comment: Anemia reflex testing triggers on a HGB < 12.0 for Females and HGB < 13.0 for Males in accordance with the WHO Anemia Guidelines Anemia reflex testing triggers on a HGB < 12.0 for Females and HGB < 13.0 for Males in accordance with the WHO Anemia Guidelines HCT 33.8(L) 40.0 - 48.4 % 10/21/2023 8:41 AM EDT [facility] MCV 94.2 82.0 - 99.5 fL 10/21/2023 8:41 AM EDT [facility] MCH 33.1 27.0 - 34.0 pg 10/21/2023 8:41 AM EDT [facility] MCHC 35.2 32.0 - 36.0 g/dL 10/21/2023 8:41 AM EDT [facility] RDW 13.6 11.5 - 15.5 % 10/21/2023 8:41 AM EDT [facility]10 PLT 172 140 - 400 K/uL 10/21/2023 8:41 AM EDT [facility]10 MPV 10.1 6.6 - 11.1 fL 10/21/2023 8:41 AM EDT [facility] Blood Venous blood specimen / Unknown Venipuncture / Unknown 10/21/2023 8:14 AM EDT 10/21/2023 8:14 AM EDT Jennifer PASTOR LAB BLOOD [place] [facility] [facility] [place] [address] documented in this encounter Visit Diagnoses Diagnosis Parkinson's disease, unspecified whether dyskinesia present, unspecified whether manifestations fluctuate (HCC)- Primary Moderate cognitive impairment HTN, goal below 140/90 Unspecified essential hypertension Asymptomatic bilateral carotid artery stenosis Occlusion and stenosis of multiple and bilateral precerebral arteries without mention of cerebral infarction Orthostatic hypotension History of syncope Other specified personal history presenting hazards to health Iron deficiency anemia, unspecified iron deficiency anemia type Vitamin D deficiency Unspecified vitamin D deficiency Enlarged prostate Hypertrophy of prostate without urinary obstruction and other lower urinary tract symptoms (LUTS) Constipation, unspecified constipation type documented in this encounter Care Teams [employer] Comb[employer] Teacher Relationship Specialty Start Date End Date Jennifer Modi CRNP [address] [place] [address] PCP - General Nurse Practitioner 10/21/23 documented as of this encounter
--- OUTSIDE RECORDS SUMMARY | 2023-12-04 23:13 | External Medical Summary ---
Author Name Unknown Address Unknown Organization [id number]:[facility] [address] [place] [address] Laboratory Report Ordering Provider Test Date Status ZANASAMARIA 10/21/2023 08:14:15 Final Observation Date Value Abnormality Reference (Units ) Status Ferritin 10/21/2023 08:14:15 678 Above high normal 30 -400 (ng/mL) Final Performing Location [facility] - [address] [place] [address]
--- OUTSIDE RECORDS SUMMARY | 2023-12-04 23:13 | External Medical Summary ---
Author Name Unknown Address Unknown Organization K0G:[facility] [address] - [address] [place] [address] Laboratory Report Ordering Provider Test Date Status SAMARIA SPANN 10/21/2023 08:14:15 Final Observation Date Value Abnormality Reference (Units ) Status SYNC LEUKOCYTES IN BLOOD BY AUTOMATED COUNT 10/21/2023 08:14:15 3.79 Below low normal 4.00-10.80 (K/uL) Final Segs 10/21/2023 08:14:15 44.9 40.0-75.0 (%) Final Lymphs % 10/21/2023 08:14:15 46.7 Above high normal 18.0-42.0 (%) Final Monos 10/21/2023 08:14:15 6.6 1.0-11.0 (%) Final Eosinophils 10/21/2023 08:14:15 1.3 0.0-6.0 (%) Final Basos 10/21/2023 08:14:15 0.5 0.0-2.0 (%) Final Absolute Segs 10/21/2023 08:14:15 1.70 Below low normal 1.80-7.70 (K/uL) Final Lymphs, absolute 10/21/2023 08:14:15 1.77 1.00-4.80 (K/ul) Final Monos, Abs 10/21/2023 08:14:15 0.25 0.00-1.10 (K/uL) Final Eos, Abs 10/21/2023 08:14:15 0.05 0.00-0.70 (K/uL) Final Basos, Abs 10/21/2023 08:14:15 0.02 0.00-0.20 (K/uL) Final Performing Location [facility] - [address] [place] [address]
--- OUTSIDE RECORDS SUMMARY | 2023-12-04 23:13 | External Medical Summary ---
Author Name Unknown Address Unknown Organization K01:[facility] [place] [address] [facility] [address] [facility] [address] Laboratory Report Ordering Provider Test Date Status SAMARIA SPANN 10/21/2023 08:14:15 Final Observation Date Value Abnormality Reference (Units ) Status Retic, % (auto) 10/21/2023 08:14:15 1.32 0.80-1.90 (%) Final Reticulocytes, Absolute 10/21/2023 08:14:15 48.3 31.3-100.1 (K/uL) Final Reticulocyte fraction, immature 10/21/2023 08:14:15 12.1 2.5-20.6 (%) Final Reticulocyte HGB 10/21/2023 08:14:15 36.4 29.7-37.4 (pg) Final Performing Location [facility] [place] [address] [facility] [address]
--- OUTSIDE RECORDS SUMMARY | 2023-12-04 23:13 | External Medical Summary ---
Author Name Unknown Address Unknown Organization K0G:[facility] [address] - [address] [place] [address] Laboratory Report Ordering Provider Test Date Status SAMARIA SPANN 10/21/2023 08:14:15 Final Observation Date Value Abnormality Reference (Units ) Status WBC, Total 10/21/2023 08:14:15 3.79 Below low normal 4. 00-10.80 (K/uL) Final RBC 10/21/2023 08:14:15 3.59 4.50-5.25 (M/uL) Final Hemoglobin 10/21/2023 08:14:15 11.9 Below low normal 14 .0-16.8 (g/dL) Final Anemia reflex testing trigge rs on a HGB < 12.0 for Females and HGB < 13.0 for Males in accordance with the WHO Anemia Guidelines
Anemia reflex testing triggers on a HGB < 12.0 for Females and HGB < 13.0 for Males in accordance with the WHO Anemia Guidelines HCT 10/21/2023 08:14:15 33.8 Below low normal 40. 0-48.4 (%) Final MCV 10/21/2023 08:14:15 94.2 82.0-99.5 (fL) Final MCH 10/21/2023 08:14:15 33.1 27.0-34.0 (pg) Final MCHC 10/21/2023 08:14:15 35.2 32.0-36.0 (g/dL) Final RDW 10/21/2023 08:14:15 13.6 11.5-15.5 (%) Final Platelets 10/21/2023 08:14:15 172 140-400 (K /uL) Final MPV 10/21/2023 08:14:15 10.1 6.6-11.1 ( fL) Final Performing Location [facility] [address] - [address] [place] [address]
--- OUTSIDE RECORDS SUMMARY | 2023-12-04 23:13 | External Medical Summary | Summary of Care ---
Author Name Unknown Organization [facility] Address [address] [place] [address] Phone [phone] Care Team Providers Care Medical Social Consultant Name Role Phone Jennifer Modi Primary Care Provider Reason for Visit * Reason Onset Date Comments Medication Administration 11/21/2023 Flu an d/or Pneumo Inj Encounter Details Date Type Department Care Team (Late st Contact Info) Description 11/21/2023 11:00 AM EDT Immunization Ancillary [facility] [address] [place] [address] [facility] Nurse [facility] [address] [place] [address] Need for prophylactic vaccination and inoculation against influenza* Allergies No known active allergiesdocumented as of [...] Carbidopa-Levodopa 25-100 MG Oral Tablet (Sinemet) Take 1.5 tablets at 8am, 12pm and 4pm. See office instructions for taper. 135 Tablet 2 10/27/2023 Active Hospital, Clinic, or Other Facility Administered Medication Ordered Dose Route Frequency Start Date End Date Status Vitamin B-12 (Cyanocobalamin) inj 1,000 mcgIndications:Vitamin B 12 deficiency 1000 mcg IM [id number] 10/27/2023 09/27/2024 Active documented as of this [...] (Prevnar) 02/27/2015 Pneumococcal Conjugate Vacci ne, 20-valent ([id number]) 12/13/2022 Pneumococcal Polysaccharide PPV23 (Pneumovax) 10/29/2008 Seasonal [...] on file documented as of this encounter Patient Instructions * Patient Instructions* Rosy Lutz LPN - 11/21/2023 8:00 AM EDT ~~PATIENT INSTRUCTIONS FOR FLU SHOT~~ Possible side effects of influenza vaccine, (flu shot), are usually mild and include: 1. Soreness or redness at injection site 2. Low grade fever 3. Body aches You may use Tylenol/Acetaminophen as needed for these symptoms. LET YOUR DOCTOR KNOW IMMEDIATELY IF YOU HAVE DIFFICULTY BREATHING OR SWALLOWING, EXPERIENCE ITCHINGOF FEET OR HANDS, HAVE SWELLING OF EYES, FACE OR INSIDE OF NOSE. documented in this encounter Progress Notes * Rosy Lutz LPN - 11/21/2023 7:58 AM EDT PRE - ADMINISTRATION DOCUMENTATION Are you experiencing any cold symptoms or fever? No Have you had Guillain-Sapulpa Syndrome (an illness that causes paralysis) within the last 6 weeks? No Have you had the flu shot in the past? YES Have you ever had a reaction to the flu shot? No Rosy Lutz LPN, 11/21/2023 7:58 AM Immunization Administration Documentation Time Out Procedure Performed: Yes Patient Identified (Ask Name/Date of ): Yes Does the patient have a fever greater than 101 degrees today? No Patient allergic to latex? No VFC Stock: No Immunization(s) verified: Yes, Immunization Name: Flu, VIS Sheet(s) given: Yes Verified Side and Site: Yes Verified Shot(s) with Parent(s)/Patient: Yes documented in this encounter Plan of Treatment Upcoming Encounters Date Type Department Care Team (Late st Contact Info) Description 01/12/2024 7:00 AM EST Office Visit [facility] [place] [address] [place] [address] Mee Bradley PA-C [address] [place] [address] Health Maintenance Due Date Last Done Comments [...] Not on filedocumented as of this encounter Visit Diagnoses Diagnosis Need for prophylactic vaccination and inoculation against influenza- Primary documented in this encounter Care Teams Medical Social Consultant Relationship Specialty Start Date End Date Jennifer Modi CRNP [address] [place] [address] PCP - General Nurse Practitioner 10/21/23 documented as of this encounter
--- OUTSIDE RECORDS SUMMARY | 2023-12-04 23:13 | External Medical Summary ---
Author Name Unknown Address Unknown Organization K01:[facility] - [address] [place] [address] Laboratory Report Ordering Provider Test Date Status SAMARIA SPANN 10/21/2023 08:14:15 Final Observation Date Value Abnormality Reference (Units ) Status Folic Acid 10/21/2023 08:14:15 5.4 >4.5 (ng/ mL) Final Performing Location [facility] - [address] [place] [address]
--- OUTSIDE RECORDS SUMMARY | 2023-12-04 23:13 | External Medical Summary | Summary of Care ---
Author Name Unknown Organization [facility] Address [address] [place] [address] Phone [phone] Care Team Providers Care Estimator Name Role Phone Jennifer Modi Primary Care Provider Reason for Visit * Reason Comments NEW PATIENT Parkinson's disease * Evaluate & Treat - Unlimited Visits (Within 10 days (routine)) - Authorized Specialty Diagnoses / Procedures Referred By Contej t Referred To Contact Neurology Diagnoses Parkinson's disease, unspecified whether dyskinesia present, unspecified whether manifestations fluctuate (HCC) Jennifer Modi CRNP [address] [place] [address] Referral ID Status Reason Start Date Expiration Date Visits Requested Visits Authorized [id number] Authorized Specialty Services Required 10/21/[phone] Encounter Details Date Type Department Care Team (Late st Contact Info) Description 10/27/2023 8:00 AM EDT Office Visit Neurology [facility] [address] [place] [address] Mee Bradley [facility]C [address] [facility] [address] Parkinson's disease without dyskinesia or fluctuating manifestations (HCC)* Allergies No known active allergiesdocumented as of this encounter (statuses as of 10/27/2023) Medications Medication Sig Dispensed Refills Start Date [...] for taper. 135 Tablet 2 10/27/2023 Active Carbidopa-Levodo pa 25-100 MG Oral Tablet (Sinemet) Take 2 Tablets by mouth in the morning and 2 Tablets at noon and 2 Tablets before bedtime. Discontinue d(Refill) documented as of this encounter (statuses as of 10/27/2023) Active Problems Problem Noted Date Diagnosed Date Parkinson's disease 10/21/2023 documented as of this encounter (statuses as of 10/27/2023) Immunizations Name Administration Dates Next Due COVID-19 mRNA, LNP-s, No Pre serve, 2-Dose Series (Moderna) 06/08/2021,12/14/2020,05/06/2020,04/08 COVID-19, MRNA-LNP, 23-24, P F, 50 MCG/0.5 mL, 12 YRS AND ABOVE, IM (MODERNA-Spikevax) 11/13/2022 Covid-19, Mrna, Lnp-s, Pf, B ivalent, 50 Mcg, IM, 12 yrs and above (Moderna) 11/16/2021 Pneumococcal Conjugate Vacc, 13 Valent (Prevnar) 02/27/2015 Pneumococcal Conjugate Vacci ne, 20-valent ([id number]) 12/13/2022 Pneumococcal Polysaccharide PPV23 (Pneumovax) 10/29/2008 Seasonal [...] Sign Reading Time Taken Comments Blood Pressure 132/70 10/27/2023 8:05 AM EDT Pulse 65 10/27/2023 8:05 AM EDT Temperature 36.3 C (97.4 F) 10/27/2023 8:05 AM ED T Respiratory Rate - - Oxygen Saturation 98% 10/27/2023 8:05 AM EDT Inhaled Oxygen Concentration - - Weight 84.8 kg (186 lb 14.4 oz) 10/27/2023 8:05 AM EDT Height 181.6 cm (5' 11.5") 10/27/2023 8:05 AM ED T Body Mass Index 25.7 10/27/2023 8:05 AM EDT documented in this encounter Patient Instructions * Patient Instructions* Mee Bradley PA-C - 10/27/2023 8:47 AM EDT If currently taking 1.5 tablets / 0.5 / 0.5; increase as below: Week 1: 1.5 tablets 8am 1 tablet 12pm 0.5 tablet 4pm Week 2: 1.5 tablets 8am 1 tablets 12pm 1 tablets 4pm Week 3: 1.5 tablets 8am 1.5 tablets 12pm 1 tablet 4pm Week 4: 1.5 tablets 8am 1.5 tablets 12pm 1.5 tablets 4pm documented in this encounter Progress Notes * Mee Bradley PA-C - 10/27/2023 8:00 AM EDT HISTORY & PHYSICAL EXAMINATION - NEUROLOGY Name: Jos Khan Date: 10/26/2023 Time: 3:10 PM Chief Complaint Patient presents with NEW PATIENT Parkinson's disease SUBJECTIVE: Jos Khan is a 78 year old male who presents today for evaluation. He presents today accompanied by his daughter. Recently moved with his from the [place] area to be closer to family. Currently living with his daughter, but looking into placement in [facility]. States he was first diagnosed with Parkinson's disease in April 12, 2022 after developing a lefthand tremor. There may have been a shuffling gait at that time as well. Has been on carbidopa/levodopa however has not noticed much improvement. There is some slight confusion regarding dosing. His pill bottle states to take 2 tablets 3 times daily however he is taking 2 tablets in the morning, half tablet at noon and half tablet before bed. He has not noticed any improvement. Main concern is left hand resting tremor. Also notes stiffness of left upper extremity. Mild lightheadedness with standing which resolves quickly. No syncope or falls. Gait is overall okay. Notes memory decline. Needs reminders for appointments and may not remember specifics of conversations. Memory test done with PCP scored 15/30. Not driving. His father may have had Parkinson's disease however was never formally diagnosed. Denies hallucinations, REM behavior disorder. No difficulty with standing from a chair or rolling in bed. B12 223 pg/mL; starting monthly B12 injections. Allergies: Patient has no known allergies. Problem list: Patient Active Problem List Diagnosis Parkinson's disease (HCC) Past Medical History: Past Medical History: Diagnosis Date Chronic left hip pain 12/13/2022 Cognitive communication deficit 03/09/2022 Diverticulosis 06/14/2021 Hx of syncope 10/04/2017 Kidney stone 05/07/2021 Osteoarthritis 12/01/2010 Other fatigue 04/14/2022 Parkinson's disease (HCC) 03/09/2022 Pneumothorax disorder tRAUMATIC DUE TO RIB FRACTURE. HE HAD CHEST TUBE 2009 Rosacea 01/31/2014 Sciatica 09/01/2021 Syncope, cardiogenic 06/11/2021 Tremor of unknown origin 06/11/2021 Ureteral stone with ureteral stent- unknown year Vitamin D deficiency 04/14/2022 White coat syndrome with diagnosis of hypertension 05/07/2021 Current Outpatient Medications: Current Outpatient Medications Medication Sig Dispense Refill Acetaminophen 500 MG Oral Tablet (Tylenol) Take 1 Tablet by mouth every 6 hours as needed. Docusate Sodium 100 MG Oral Capsule (Colace) Take 1 Capsule by mouth as needed for Constipation. Polyethylene Glycol 3350 4 GM Oral Packet Take by mouth as needed for Constipation. Vitamin C 250 MG Oral Tablet (Ascorbic Acid) Take 1 Tablet by mouth in the morning. Carbidopa-Levodopa 25-100 MG Oral Tablet (Sinemet) Take 2 Tablets by mouth in the morning and 2 Tablets at noon and 2 Tablets before bedtime. No current facility-administered medications for this visit. Family History: Family History Problem Relation Name Age of Onset Dementia Mother Heart attack Father 91 No Known Problems Sister Lakia No Known Problems Sister Karla No Known Problems Sister Laura No Known Problems Brother Willard No Known Problems Daughter SOCIAL HISTORY: Social History Tobacco Use Smoking status: Never Smokeless tobacco: Never Vaping Use Vaping status: Never Used Substance Use Topics Alcohol use: Yes Comment: very rarely Drug use: Never REVIEW OF SYSTEMS: As above OBJECTIVE: Physical Examination: BP 132/70 (BP Site: Right Arm, BP Position: Sitting, BP Cuff Size: Regular) | Pulse 65 | Temp 36.3 C (97.4 F) (Tympanic) | Ht 1.816 m (5' 11.5") | Wt 84.8 kg (186 lb 14.4 oz) | SpO2 98% | BMI 25.70 kg/m | BSA 2.07 m General appearance: healthy, alert, no distress Physical Exam: Constitutional: Appearance normally developed,well nourished,no deformities,well groomed Head and face: Decreased blink; masked facies; hypophonia; normocephalic,atraumatic Psychiatric: normal judgement and insight,normal mood,normal affect NEUROLOGIC EXAMINATION: +slight stutter Language and speech normal Answers questions appropriately Some confusion regarding medications Cranial Nerves: CN 2,3 - PERRL CN 3, 4, 6 - Extra-ocular Movements Intact,no nystagmus CN 5 - Facial sensation intact and equal bilaterally CN 7 - no facial assymetry CN 8 - hearing grossly intact CN 9, 10, 12 - tongue and uvula midline Coordination: +left hand resting tremor; mild bradykinesia with finger taps Gait/station: Arises from chair easily. Mild stooping posture. Gait overall good; not shuffling. Good turn. Left hand tremor with walking. Muscle exam: Bilateral UE cogwheel rigidity Arm Right Left Leg Right Left Deltoid 5/5 5/5 Iliopsoas 5/5 5/5 Biceps 5/5 5/5 Quads 5/5 5/5 Triceps 5/5 5/5 Reflexes: Biceps BR Patellar Achilles Plantars Right 2+ 2+ 2+ 1 Flexor Left 2+ 2+ 2+ 1 Flexor Sensation: Intact light touch; ankle level to vibration and temperature LABORATORY: No results found for: "HEMOGLOBIN A1C" Lab Results Component Value Date/Time [facility] 10/21/2023 08:14 AM No results found for: "SANJU" Results for orders placed or performed in visit on 10/21/23 VITAMIN B12 Result Value Ref Range Vitamin B12 223 (L) 232 - 1,245 pg/mL Results for orders placed or performed in visit on 10/21/23 FOLIC ACID Result Value Ref Range Folic Acid 5.4 >4.5 ng/mL No results found for: "[id number]" No results found for: "[id number]" No results found for: "[id number]" 25-Hydroxy Vitamin D (ng/mL) Date Value 10/21/2023 36 Vitamin D Level Interpretation deficient: <20 ng/ml insufficient: 20-30 ng/ml normal: 31-100 ng/ml Review of prior Studies: Per prior clinical notes; MRI brain 2021 with mild white matter changes. ASSESSMENT/PLAN: Jos Khan is a 78 year old male with Parkinson's disease. On examination he has prominent left hand resting tremor, bilateral cogwheel rigidity, and bradykinesia with alternating movements. There has been some confusion regarding dosing and timing of carbidopa/levodopa, currently taking 1.5 tablets/ 0.5 / 0.5. Advised to space 45min - 1 hour before or after meals. Take at 8am / 12pm / 4pm. Gave schedule to slowly increase to 1.5 tablets TID. Monitor for orthostasis. Tremor is difficult to treat, and the medications we use may have intolerable side effects. Will maximize carbidopa/levodopa. B12 injections through PCP. MMSE at next visit; consider donepezil. Follow up in 2 months or sooner if needed. I spent a total of 60 minutes on the date of service in preparation, delivery, and documentation of the care provided to Jos Khan. Cher Sheehan MD available for direct consultation. Mee Bradley PA-C, Neurology [address] [place] [address] 10/27/23 9:04 AM documented in this encounter Nursing Notes * Beverly Ames LPN - 10/27/2023 8:05 AM EDT Chief Complaint Patient presents with NEW PATIENT Parkinson's disease documented in this encounter Plan of Treatment Upcoming Encounters Date Type Department Care Team (Late st Contact Info) Description 01/12/2024 7:00 AM EST Office Visit Neurology [facility] [address] [facility] [place] [address] Mee Bradley PA-C [address] [place] [address] Health Maintenance Due Date Last Done Comments Depression Screening 1957 Hepatitis C Screening 07[birth year]29/1963 Adult Wellness Visit 07/29/2013 DTap/Tdap Vaccines (3 - Td or Tdap) 08/30/2022 08/30/2012, 11/21/2008 COVID-19 Vaccine ( - 2022- season) 2023 11/13/2022, 11/16/2021, 06/08/2021, Additional history [...] as of this encounter Visit Diagnoses Diagnosis Parkinson's disease without dyskinesia or fluctuating manifestations (HCC)- Primary documented in this encounter Care Teams Estimator Relationship Specialty Start Date End Date Jennifer Modi CRNP [address] [place] [address] PCP - General Nurse Practitioner 10/21/23 documented as of this encounter
--- OUTSIDE RECORDS SUMMARY | 2023-12-04 23:13 | External Medical Summary ---
Author Name Unknown Address Unknown Organization K0G:[facility] [address] - [address] [place] [address] Laboratory Report Ordering Provider Test Date Status SAMARIA SPANN 10/21/2023 08:14:15 Final Observation Date Value Abnormality Reference (Units ) Status BUN 10/21/2023 08:14:15 19 6-20 (mg/dL) Final Creatinine 10/21/2023 08:14:15 0.7 0.6-1.2 (mg/dL) Final Glomerular filtration rate/1.73 sq M.predicted [Volume Rate/Area] in Serum, Plasma or Blood by Creatinine-based formula (CKD-EPI) 10/21/2023 08:14:15 >90 >=60 (mL/min) Final eGFR is calculated based on the CKD-EPI 2020 equation. Sodium 10/21/2023 08:14:15 143 135-146 (m mol/L) Final Potassium 10/21/2023 08:14:15 3.7 3.5-5.1 (m mol/L) Final Cl 10/21/2023 08:14:15 106 98-107 (mm ol/L) Final CO2 10/21/2023 08:14:15 26 22-32 (mmo l/L) Final Anion gap 10/21/2023 08:14:15 11 7-15 (mmol /L) Final Glucose 10/21/2023 08:14:15 94 70-120 (mg /dL) Final Albumin 10/21/2023 08:14:15 4.7 3.8-5.0 (g /dL) Final AST (Aspartate aminotransferase) 10/21/2023 08:14:15 10 10-50 (U/L) Fin al Alk Phos 10/21/2023 08:14:15 74 35-130 (U/ L) Final Bilirubin, Total 10/21/2023 08:14:15 0.7 <=1 .2 (mg/dL) Final Calcium 10/21/2023 08:14:15 9.3 8.4-10.2 ( mg/dL) Final Protein 10/21/2023 08:14:15 6.3 6.0-8.3 (g /dL) Final ALT (Alanine aminotransferase) 10/21/2023 08:14:15 <6 Below low normal 10-50 (U/L) Final Performing Location [facility] [place] [address] - [address] [facility] [address]
--- OUTSIDE RECORDS SUMMARY | 2023-12-04 23:13 | External Medical Summary | Summary of Care ---
Author Name Unknown Organization [facility] Address [address] [place] [address] Phone [phone] Care Team Providers Care Regulatory Assistant Name Role Phone Jennifer Modi Primary Care Provider Reason for Visit * Reason Comments Medication Administration B-12 Encounter Details Date Type Department Care Team (Late st Contact Info) Description 11/11/2023 9:00 AM EDT Nurse Only Ancillary [facility] [address] [place] [address] Nurse, Int Med [address] [place] [address] Medication Administration (B-12) Allergies No known active allergiesdocumented as of this encounter (statuses as of 11/11/2023) Medications Medication Sig Dispensed Refills Start Date [...] mcgIndications:Vitamin B 12 deficiency 1000 mcg IM [id number] 10/27/2023 09/27/2024 Active documented as of this encounter (statuses as of 11/11/2023) Active Problems Problem Noted Date Diagnosed Date Parkinson's disease 10/21/2023 documented as of this encounter (statuses as of 11/11/2023) Immunizations Name Administration Dates Next Due COVID-19 mRNA, LNP-s, No Pre serve, 2-Dose Series (Moderna) 06/08/2021,12/14/2020,05/06/2020,04/08 COVID-19, MRNA-LNP, 23-24, P F, 50 MCG/0.5 mL, 12 YRS AND ABOVE, IM (MODERNA-Spikevax) 11/13/2022 Covid-19, Mrna, Lnp-s, Pf, B ivalent, 50 Mcg, IM, 12 yrs and above (Moderna) 11/16/2021 Pneumococcal Conjugate Vacc, 13 Valent (Prevnar) 02/27/2015 Pneumococcal Conjugate Vacci ne, 20-valent ([id number]) 12/13/2022 Pneumococcal Polysaccharide PPV23 (Pneumovax) 10/29/2008 Seasonal [...] on file documented as of this encounter Nursing Notes * Khushi Sheldon LPN - 11/11/2023 8:48 AM EDT Pre-Administration Time Out Procedure Performed: Yes Patient Identified (Ask Name/Date of ): Yes Does the patient have a fever greater than 101 degrees today? No Patient allergic to latex? No Has the patient ever fainted after receiving an injection? No VFC Stock: No Injection(s) verified: Yes, Injection Name: B-12 Verified Side and Site: Yes Verified Shot(s) with Parent(s)/Patient: Yes documented in this encounter Plan of Treatment Upcoming Encounters Date Type Department Care Team (Late st Contact Info) Description 01/12/2024 7:00 AM EST Office Visit Neurology [facility] [address] [place] [address] Mee Bradley PA-C [address] [facility] [place] [phone] Health Maintenance Due Date Last Done Comments [...] as of this encounter Visit Diagnoses Diagnosis Vitamin B12 deficiency- Primary Other B-complex deficiencies documented in this encounter Administered Medications Active Administered Medications - up to 3 most recent administrations Medication Order MAR Action Action Date Dose Rate Site Vitamin B-12 (Cyanocobalamin) inj 1,000 mcg 1,000 mcg, Intramuscular, [id number], First dose on Deja 10/27/23 at 1215, Last dose on Deja 08/30/24 at 1215, For 12 doses Given 11/11/2023 8:43 AM EDT 1,000 mcg Deltoid Left Upper documented in this encounter Care Teams Regulatory Assistant Relationship Specialty Start Date End Date Jennifer Modi CRNP [address] [place] [address] PCP - General Nurse Practitioner 10/21/23 documented as of this encounter
--- OUTSIDE RECORDS SUMMARY | 2023-12-04 23:13 | External Medical Summary ---
Author Name Unknown Address Unknown Organization K01:LABORATORY [facility] [place] - [address] [place] [address] Laboratory Report Ordering Provider Test Date Status SAMARIA SPANN 10/21/2023 08:14:15 Final Observation Date Value Abnormality Reference (Units ) Status Vitamin B12 10/21/2023 08:14:15 223 Below low normal 2 32-1245 (pg/mL) Final Performing Location [facility] - [address] [place] [address]
--- OUTSIDE RECORDS SUMMARY | 2023-12-04 23:13 | External Medical Summary ---
Author Name Unknown Address Unknown Organization K01:LABORATORY [facility] - [address] [place] [address] Laboratory Report Ordering Provider Test Date Status ZANASAMARIA 10/21/2023 08:14:15 Final Deficient: <20 ng/mL
Ins ufficient: 20-29 ng/mL
Recommended/Optimum:30-50 ng/mL

Vitamin D intoxication is rare. If suspicious of Vitamin D toxicity, evaluation of serum Calcium and PTH is recommended. Observation Date Value Abnormality Reference (Units ) Status 25-OH Vitamin D total 10/21/2023 08:14:15 36 >19 (ng/mL) Final Performing Location [facility] - [address] [place] [address]
--- OUTSIDE RECORDS SUMMARY | 2023-12-04 23:13 | External Medical Summary ---
Author Name Unknown Address Unknown Organization K01:[facility] [place] [address] [facility] [address] Laboratory Report Ordering Provider Test Date Status DIVINA SPANNJanis 10/21/2023 08:14:15 Final Observation Date Value Abnormality Reference (Units ) Status Iron 10/21/2023 08:14:15 112 45-176 (ug/dL) Final Iron-binding capacity 10/21/2023 08:14:15 231 Below low normal 250-425 (ug/dL) Final Transferrin Sat % 10/21/2023 08:14:15 48 15-55 (%) Final Performing Location [facility] [place] [address] [facility] [address]
[2023-12-04] MEDS ORDERED: POLYETHYLENE (MIRALAX) 17 GM PACK PO PRN (23:32)
[2023-12-04] MEDS ORDERED: DOCUSATE SODIUM 100 MG CAP PO PRN (23:32)
[2023-12-04] MEDS ORDERED: NITROGLYCERIN SL 0.4 MG/TAB TAB SL PRN (23:32)
[2023-12-05] MEDS: SODIUM CHLORIDE 0.9% 1,000 ML IV SCH (00:01)
[2023-12-05] MEDS: cefTRIAXone SODIUM 2,000 MG/50 ML BAG IV SCH (00:02)
[2023-12-05] MEDS: POTASSIUM CHLORIDE PWD 20 MEQ PACK PO STA (00:48)
[2023-12-05 05:19] LABS: Basophils # (auto) 0.03 K/uL (0.00-0.20); Basophils % (auto) 0.4 %; Eosinophils # (auto) 0.06 K/uL (0.00-0.50); Eosinophils % (auto) 0.8 %; Hemoglobin 10.4 g/dl (14.0-18.0); Immature Granulocytes # (auto) 0.03 K/uL (0.01-0.20); Immature Granulocytes % (auto) 0.4 %; Lymphocytes # (auto) 2.94 K/uL (1.20-3.40); Lymphocytes % (auto) 38.3 %; Mean Corpuscular Hemoglobin 32.7 pg (25.0-34.0); Mean Corpuscular Hgb Conc 35.9 g/dL (32.0-36.0); Mean Corpuscular Volume 91.2 fL (80.0-100.0); Mean Platelet Volume 10.5 fL (9.4-12.4); Monocytes # (auto) 0.49 K/uL (0.11-0.59); Monocytes % (auto) 6.4 %; Neutrophils # (auto) 4.13 K/uL (1.40-6.50); Neutrophils % (auto) 53.7 %; Platelet Count 153 K/uL (130-400); RDW Coefficient of Variation 13.6 % (11.5-14.5); RDW Standard Deviation 45.2 fL (36.4-46.3); Red Blood Count 3.18 M/uL (4.70-6.10); White Blood Count 7.68 K/ul (4.8-10.8)
[2023-12-05 05:34] LABS: BUN Creatinine Ratio 27.1 (10-20); Calcium 8.4 mg/dl (8.6-10.3); Creatinine Clr Calc Pharmacy 116.9 ml/min; Magnesium 2.1 mg/dl (1.7-2.4); Potassium 3.6 mmol/L (3.5-5.1)
[2023-12-05 05:39] LABS: Troponin I High Sensitivity 5.7 pg/ml (0-20)
[2023-12-05 05:59] LABS: Folate (Folic Acid),Ser orPlas 6.13 ng/ml (>5.38)
--- NOTE | 2023-12-05 07:03 | XRay Report ---
XR chest 1V portable CLINICAL HISTORY: Syncope. COMPARISON STUDY: No previous studies for comparison. FINDINGS: Lung volumes are normal. Lungs are clear. There is no pneumothorax or pleural effusion. Car diac size is normal. Mediastinal contours are normal. There is no evidence for pulmonary edema. There are several old anterior right-sided rib fractures. IMPRESSION: No acute cardiopulmonary findings. ACT 112: Negative or not required by law. Electronically signed by: Ronald Feng M.D. 12/05/2023 7:02 AM
[2023-12-05] MEDS: ASCORBIC ACID 500 MG TAB PO SCH (08:21)
[2023-12-05] MEDS: CARBIDOPA/LEVODOPA 25/100MG TAB PO SCH (08:21)
[2023-12-05] MEDS: ENOXAPARIN INJ 40 MG/0.4 ML SYR SQ SCH (08:21)
--- NOTE | 2023-12-05 08:29 | Electrocardiogram Report ---
Test Reason : Blood Pressure : */* mmHG Vent. Rate : 59 BPM Atrial Rate : 59 BPM P-R Int : 110 ms QRS Dur : 88 ms QT Int : 430 ms P-R-T Axes : 36 2 16 degrees QTcB Int : 425 ms Sinus bradycardia with short IL Otherwise normal ECG No previous ECGs available Confirmed by Preet Wills ([id number]) on 12/05/2023 8:29:27 AM Referred By: Confirmed By: Preet Wills
--- NOTE | 2023-12-05 08:34 | Hospitalist Progress Note ---
Date of Service December 05, 2023 Assessment & Plan (1) Near syncope: Plan: 78-year-old male with past medical history significant for Parkinson disease who recently moved with his to [facility] from [facility] and currently living with his daughter and the plan for assisted living soon presents because of fall and near syncope. As per patient he fell in the hallway once. And was also little woozy and almost passing out. When he fell he did not hit his head. Question of loss of consciousness but patient declines it. Patient is able to give his history. Currently resting comfortably and hemodynamically stable. As per PCP notes symptoms stable off of Flomax for BPH. And hypertension is stable off of losartan hydrochlorothiazide. Moderate cognitive impairment with Mini-Mental exam 15. Near syncope Fall Acute Gentle fluids; continue for now x1 bag and discontinue given patient is eating ECHO completed: EF 60-65%, mild LVH, mild MR/TR No leukocytosis or electrolyte abnormalities Monitor in med/telemetry PT/OT ordered Neurology consult given Sinemet and likely syncope secondary to Parkinsons orthostasis Ortho BP's this AM: lying 178/75, sitting 170/76, standing 174/76 TSH 1.908 During Neuro eval via [facility]; 24 beat run VT around 1130 with some intermittent dizziness (unsure if dizziness coincided exactly with VT) Repeat e-lytes; K+ 3.8, Mg+ 2.0 ECG this AM: NSR with shortened BRIJESH with Incomplete right bundle branch block; ; ECG NSR with some Twave inversion Cards consult; appreciate reccs Parkinson disease Chronic Continue Sinemet Neurology consult; saw Neuro as outpatient on 10/26 to establish care. UTI Possibly contributing to symptoms, low suspicion On Rocephin; UA obtained + Nitrates and WBC Urine culture no growth so far; will discontinue IV Rocephin Anemia Hemoglobin 10.7; no signs of overt bleeding Will check stool for Hemoccult Iron studies, vitamin B12 level 205 folate level normal 6.05 No leukocytosis Hypokalemia and hypomagnesia Replaced in ED Mg+ 2.1 this AM and K+ 3.6 Resolved Constipation Continue stool softeners as needed History of vitamin B12 deficiency Receives B12 shots serum B12 205 in ED Anemia Hemoglobin 10.7; no signs of overt bleeding Will check stool for Hemoccult Iron studies, vitamin B12 level 205 folate level normal 6.05 Disposition: VTE Prophylaxis:Lovenox SQ/thigh high teds Code Status: Full Code Disposition: Med/telemetry; prior to ED was working on [employer] for H options Case management to assist with placement I spent a total of 56 minutes coordinating, documenting, and providing care for this patient excluding time spent in the performance of separately billed services. All of the aforementioned completed while collaborating with the assigned attending physician for a full treatment plan. Please see their addendum for further details. Admission and Anticipated Discharge Date Admission Date: December 04, 2023 Supervising Physician Co-Signing Physician Notes I have seen and discussed the case with the collaborating advanced practitioner. I agree with the above PN. I have reviewed and confirmed the patients medical history, the findings on physical examination, and the patients diagnosis and treatment plan with and agree with the information documented. low suspicion for UTI-d/c abx Wide complex tachycardia noted-also relative bradycardia--unsure if patient can tolerate BB--Cards consult...likely contributing to presentation? I spent a total of 5 minutes coordinating, documenting, and providing care for this patient excluding time spent in the performance of separately billed services. All of the aforementioned completed outside of collaborating with the assigned advanced practitioner for a full treatment plan. I have reviewed the advanced practitioner's documentation, and I agree with, and take responsibility for the plan of care Subjective Pt sitting in his hospital bed in no apparent distress He reports that he slept well last night Denies PRECIADO, dizziness, visual or auditory changes, SOB, chest pain, palpitations, N/V/D, pain Reports consistent left sided tremor During Neuro eval via [facility]; 24 beat run VT aroud 1130 with some intermittent dizziness (unsure if dizziness coincided exactly with VT) EKG, BMP, Mg+ and Cards consult placed given syncope history Review of Systems Review of Systems: Neuro: (-) Falls, trauma, slurred speech (+) left hand tremor HEENT: (-) PRECIADO, dizziness, dysphagia, visual or auditory changes CV: (-) CP, palpitations, swelling Resp: (-) SOB GI: (-) appetite changes, N/V/D, bowel changes : (-) urinary changes Skin: (-) rashes Psych: (-) anxiety, depression Physical Exam Physical Exam: Neuro: AAOx4, PERRLA, no aphagia, memory changes, CNII-XII grossly intact . (+) masked facies, decreased blink, hypophonia. (+) left hand tremor, pill rolling HEENT: head normocephalic, moist mucus membranes CV: S1/S2, (-) M/G/R, (-) edema, cap refill < 3 seconds Resp: Lungs CTA in all parekh. On RA GI: Abdomen S/NT/ND, Ax4 bowel sounds, (-) CVA tenderness Musculoskeletal: 5/5 B/L UE strength, 5/5 B/L LE strength. Did not observe ambulation. Skin: (-) rashes , (-) erythema. Psych: euthymic, yet flat mood Results & Data Results & Data Vital Signs (Past 12 Hours) Vital Signs Temp Pulse Pulse Resp BP BP Pulse Ox 12/05/23 03:58 36.7 C 65 16 169/73 H 97 12/04/23 23:14 63 12/04/23 23:05 36.4 C L 65 16 172/86 H 99 12/04/23 23:05 12/04/23 23:05 36.4 C L 65 16 172/86 H 99 12/04/23 22:38 62 18 145/76 H 12/04/23 20:16 12/04/23 20:11 64 12/04/23 20:02 36.6 C 61 15 151/84 H 98 O2 Del Method 12/05/23 03:58 Room Air 12/04/23 23:14 12/04/23 23:05 Room Air 12/04/23 23:05 Room Air 12/04/23 23:05 Room Air 12/04/23 22:38 12/04/23 20:16 Room Air 12/04/23 20:11 12/04/23 20:02 Room Air Laboratory Results Short CBC 12/04/23 12/05/23 Range/Units 20:30 04:36 WBC 7.39 7.68 (4.8-10.8) K/ul Hgb 10.7 L 10.4 L (14.0-18.0) g/dl Hct 29.2 L 29.0 L (42.0-52.0) % Plt Count 164 153 (130-400) K/uL BMP 12/04/23 12/05/23 20:30 04:36 Sodium 140 139 Potassium 2.9 L 3.6 D Chloride 105 108 H Carbon Dioxide 26 26 BUN 17 16 Creatinine 0.67 0.59 L Glucose 112 H 93 Calcium 8.8 8.4 L Liver Function 12/04/23 Range/Units 20:30 Total Bilirubin 1.0 (0.2-1.0) mg/dl AST 9 L (13-39) U/L ALT < 3 L (7-52) U/L Alkaline Phosphatase 63 (34-104) U/L Albumin 4.3 (3.4-5.0) gm/dl Urine 12/04/23 Range/Units 21:15 Urine Color Yellow Urine Appearance Clear (Clear) Urine pH 6.5 (4.5-7.5) Ur Specific [place] 1.022 (1.000-1.030) Urine Protein 1+ H (Negative) Urine Glucose (UA) Negative (Negative) Diagnostic Findings Chest X-Ray 12/04/23 20:16 XR chest 1V portable CLINICAL HISTORY: Syncope. COMPARISON STUDY: No previous studies for comparison. FINDINGS: Lung volumes are normal. Lungs are clear. There is no pneumothorax or pleural effusion. Cardiac size is normal. Mediastinal contours are normal. There is no evidence for pulmonary edema. There are several old anterior right-sided rib fractures. IMPRESSION: No acute cardiopulmonary findings. ACT 112: Negative or not required by law. Electronically signed by: Ronald Feng M.D. 12/05/2023 7:02 AM
--- NOTE | 2023-12-05 10:30 | Neurology Consultation ---
Date of Consultation December 05, 2023 Assessment & Plan (1) Near syncope: likely related to orthostatic hypotension due to PD exacerbated by inflammatory state secondary to UTI, mild dehydration ,worse with vagal nerve stimulation Plan Agree to continue with IV hydration. UTI is currently being treated with ceftriaxone. Expected orthostatic hypotension secondary to Parkinson's disease. No need to change PD medications -Consider wearing thigh high elastic stockings and abdominal elastic band - No Need for further neurologic work up Telehealth Consultation Telehealth Information Telehealth Information: I performed this visit using a real-time telehealth connection between my location and the patients location ([facility]). After connecting through interactive tele-video, patient was identified by name and date of and/or wristband check.Patient (or authorized healthcare territory account representative) was informed that this was a telemedicine visit and it was being conducted confidentially over secure lines. My office door was closed and no one else was present in the room with me.Patient (or authorized healthcare territory account representative) provided consent to proceed with the visit, expressed an understanding of privacy and security of the telemedicine visit, and gave permission to have a hospital territory account representative in the room in order to assist with the visit and to conduct portions of the visit, as needed. I informed the patient (or authorized healthcare territory account representative) that I reviewed their record and presented the opportunity for them to ask any questions regarding the visit today. The patient agreed to participate. History of Present Illness Reason for Consultation: Near Syncope Requesting Physician: Onelia Lomas MD Attending Physician: Susanna Carmen PA-C History of Present Illness 68-year-old male patient with PMH of Parkinson's disease, and moderate cognitive impairment with documented mental status of 15/30. History of HTN,, with recently discontinued losartan and hydrochlorothiazide in addition to Flomax for BPH due to orthostatic hypotension. The patient presented to ED yesterday for evaluation of syncope near syncope. He tells me that he was feeling woozy all day, this got worse towards the evening, he would feel tired every time he goes to the bathroom. Towards the evening he was sitting with his and he felt like he needed to throw up and was about to faint so his called EMS he denies loss of consciousness or hitting his head. He is currently maintained on carbidopa levodopa 25/100. Upon evaluation he was found to be anemic with hemoglobin of 10.7, BUN was 17, creatinine 0.67 with a positive urinalysis. Allergies Allergy/AdvReac Type Severity Reaction Status Date / Time No Known Allergies Allergy Unverified 12/04/23 22:39 Home Medications Medication Instructions Recorded Confirmed Type ascorbic acid (vitamin C) 250 mg 250 mg PO DAILY 12/04/23 12/04/23 History tablet carbidopa 25 mg-levodopa 100 mg 1 tab PO UD 12/04/23 12/04/23 History tablet docusate sodium 100 mg capsule 100 mg PO DAILY PRN Constipation 12/04/23 12/04/23 History (Colace) polyethylene glycol 3350 17 gram 17 g PO DAILY PRN Constipation 12/04/23 12/04/23 History oral powder packet (Miralax) Patient History Social History Smoking Status: Never smoker Hx Alcohol Use: No Hx Substance Use: No Preferred Language: Swedish Communication Ability: Effective Assistant At Surgery Required: No Beliefs That Will Affect Care: None Current Living Situation: Spouse and Family Other Information That Helps Us Care for You: No Feels Safe at Home: Yes Safety Concerns: Feels Safe At This Time Assistive Devices: None Review of Systems Negative except for the points mentioned in HPI Physical Exam General Constitutional: Appearance normally developed Head and face: normocephalic and atraumatic Eyes: no ptosis, no anisocoria, and no dysconjugate gaze Respiratory: normal effort Cardiovascular: regular rhythm and regular rate Abdomen: non distended Skin: no rashes, lesions, or ulcers noted Psychiatric: normal judgement and insight, normal mood, and normal affect NEUROLOGIC EXAMINATION: Mental Status:alert, oriented to time, place, person, impaired normal attention span, normal concentration, normal language . Cranial Nerves: CN 2 - no visual defect on confrontation and pupils round, equal, reactive to light CN 3, 4, 6 - extra-ocular movements intact and no nystagmus CN 5 - facial sensation intact CN 7 - no facial asymmetry CN 8 - intact hearing CN 9, 10 - palate symmetric, normal gag CN 11 - good shoulder shrug CN 12 - tongue midline MOTOR: Strength was at least antigravity throughout, Pronator drift was absent and left more than right sided resting tremors SENSATION: intact and symmetric to pinprick, light touch, vibration and joint position GAIT: deferred COORDINATION: no ataxia with finger to nose testing and heel to mahoney testing REFLEXES: cannot assess over telemedicine Results & Data Vital Signs (Past 12 Hours) Vital Signs Temp Pulse Pulse Resp BP BP Pulse Ox 12/05/23 09:34 59 L 12/05/23 08:39 12/05/23 07:43 36.9 C 68 16 165/82 H 98 12/05/23 03:58 36.7 C 65 16 169/73 H 97 12/04/23 23:14 63 12/04/23 23:05 36.4 C L 65 16 172/86 H 99 12/04/23 23:05 12/04/23 23:05 36.4 C L 65 16 172/86 H 99 12/04/23 22:38 62 18 145/76 H O2 Del Method 12/05/23 09:34 12/05/23 08:39 Room Air 12/05/23 07:43 Room Air 12/05/23 03:58 Room Air 12/04/23 23:14 12/04/23 23:05 Room Air 12/04/23 23:05 Room Air 12/04/23 23:05 Room Air 12/04/23 22:38 Laboratory Results Laboratory Results - last 24 hr 12/04/23 12/04/23 12/04/23 20:30 20:32 21:15 WBC 7.39 RBC 3.23 L Hgb 10.7 L Hct 29.2 L MCV 90.4 MCH 33.1 MCHC 36.6 H RDW Std Deviation 44.8 RDW Coeff of Radha 13.5 Plt Count 164 MPV 10.4 Immature Gran % (Auto) 0.4 Neut % (Auto) 65.0 Lymph % (Auto) 29.1 [place] % (Auto) 4.6 Eos % (Auto) 0.5 Baso % (Auto) 0.4 Neut # (Auto) 4.80 Lymph # (Auto) 2.15 [place] # (Auto) 0.34 Eos # (Auto) 0.04 Baso # (Auto) 0.03 Immature Gran # (Auto) 0.03 Sodium 140 Potassium 2.9 L Chloride 105 Carbon Dioxide 26 Anion Gap 9 BUN 17 Creatinine 0.67 Est Cr Clr Drug Dosing 103.0 eGFR 96.77 BUN/Creatinine Ratio 25.4 H Glucose 112 H POC Glucose 109 H Calcium 8.8 Magnesium 1.6 L Iron TIBC Unsaturated IBC Transferrin % Sat Total Bilirubin 1.0 AST 9 L ALT < 3 L Alkaline Phosphatase 63 Troponin I High Sens 5.7 Total Protein 6.0 Albumin 4.3 Globulin 1.7 L Albumin/Globulin Ratio 2.5 H Vitamin B12 Folate TSH 1.908 Urine Color Yellow Urine Appearance Clear Urine pH 6.5 Ur Specific [place] 1.022 Urine Protein 1+ H Urine Glucose (UA) Negative Urine Ketones Trace H Urine Blood Negative Urine Nitrite Negative Urine Bilirubin Negative Urine Urobilinogen Negative Ur Leukocyte Esterase 2+ H Urine WBC (Auto) 21-50 H Urine RBC (Auto) 3-5 H U Hyaline Cast (Auto) 3-5 H U Epithel Cells (Auto) 0-2 Urine Bacteria (Auto) None Seen 12/05/23 04:36 WBC 7.68 RBC 3.18 L Hgb 10.4 L Hct 29.0 L MCV 91.2 MCH 32.7 MCHC 35.9 RDW Std Deviation 45.2 RDW Coeff of Radha 13.6 Plt Count 153 MPV 10.5 Immature Gran % (Auto) 0.4 Neut % (Auto) 53.7 Lymph % (Auto) 38.3 [place] % (Auto) 6.4 Eos % (Auto) 0.8 Baso % (Auto) 0.4 Neut # (Auto) 4.13 Lymph # (Auto) 2.94 [place] # (Auto) 0.49 Eos # (Auto) 0.06 Baso # (Auto) 0.03 Immature Gran # (Auto) 0.03 Sodium 139 Potassium 3.6 D Chloride 108 H Carbon Dioxide 26 Anion Gap 5 BUN 16 Creatinine 0.59 L Est Cr Clr Drug Dosing 116.9 eGFR 100.55 BUN/Creatinine Ratio 27.1 H Glucose 93 POC Glucose Calcium 8.4 L Magnesium 2.1 Iron 74 TIBC 239 L Unsaturated IBC 165 Transferrin % Sat 31 Total Bilirubin AST ALT Alkaline Phosphatase Troponin I High Sens 5.7 Total Protein Albumin Globulin Albumin/Globulin Ratio Vitamin B12 205 Folate 6.13 TSH Urine Color Urine Appearance Urine pH Ur Specific [place] Urine Protein Urine Glucose (UA) Urine Ketones Urine Blood Urine Nitrite Urine Bilirubin Urine Urobilinogen Ur Leukocyte Esterase Urine WBC (Auto) Urine RBC (Auto) U Hyaline Cast (Auto) U Epithel Cells (Auto) Urine Bacteria (Auto) Diagnostic Findings Chest X-Ray 12/04/23 20:16 XR chest 1V portable CLINICAL HISTORY: Syncope. COMPARISON STUDY: No previous studies for comparison. FINDINGS: Lung volumes are normal. Lungs are clear. There is no pneumothorax or pleural effusion. Cardiac size is normal. Mediastinal contours are normal. There is no evidence for pulmonary edema. There are several old anterior right-sided rib fractures. IMPRESSION: No acute cardiopulmonary findings. ACT 112: Negative or not required by law. Electronically signed by: Ronald Feng M.D. 12/05/2023 7:02 AM Medications Administered Home Medications Medication Instructions Recorded Confirmed Last Taken ascorbic acid (vitamin C) 250 mg 250 mg PO DAILY 12/04/23 12/04/23 Unknown tablet carbidopa 25 mg-levodopa 100 mg 1 tab PO UD 12/04/23 12/04/23 Unknown tablet docusate sodium 100 mg capsule 100 mg PO DAILY PRN Constipation 12/04/23 12/04/23 Unknown (Colace) polyethylene glycol 3350 17 gram 17 g PO DAILY PRN Constipation 12/04/23 12/04/23 Unknown oral powder packet (Miralax) Active Medications Generic Name Dose Route Start Last Admin Trade Name Freq PRN Reason Stop Dose Admin Ascorbic Acid 250 mg 12/05/23 09:00 12/05/23 08:21 Ascorbic Acid 500 Mg Tab PO 01/04/24 08:59 250 mg DAILY EUGENIA Administration Carbidopa/Levodopa 1.5 tab 12/05/23 08:00 12/05/23 08:21 Carbidopa/Levodopa 25/100mg Tab PO 01/04/24 07:59 1.5 tab 0800,1200,1600 EUGENIA Administration Enoxaparin Sodium 40 mg 12/05/23 08:00 12/05/23 08:21 Enoxaparin Inj 40 Mg/0.4 Ml Syr SQ 01/04/24 07:59 40 mg Q24H EUGENIA Administration Sodium Chloride 1,000 mls @ 75 mls/hr 12/04/23 23:32 12/05/23 00:01 Nss IV 12/05/23 12:51 75 mls/hr .[id number] EUGENIA Administration Ceftriaxone Sodium 2,000 mg in 50 mls @ 100 mls/hr 12/05/23 00:00 12/05/23 00:32 Rocephin IV 12/15/23 00:00 Infused Q24H EUGENIA Infusion
--- NOTE | 2023-12-05 12:16 | Electrocardiogram Report ---
Test Reason : Blood Pressure : */* mmHG Vent. Rate : 67 BPM Atrial Rate : 67 BPM P-R Int : 148 ms QRS Dur : 94 ms QT Int : 406 ms P-R-T Axes : 56 34 49 degrees QTcB Int : 429 ms Normal sinus rhythm with short GA Incomplete right bundle branch block Borderline ECG When compared with ECG of 04-Dec-2023 20:06, No significant change Confirmed by Preet Wills ([id number]) on 12/05/2023 12:16:06 PM Referred By: REFERRED SELF Confirmed By: Preet Wills
[2023-12-05 13:22] LABS: BUN Creatinine Ratio 22.2 (10-20); Calcium 8.5 mg/dl (8.6-10.3); Creatinine Clr Calc Pharmacy 109.5 ml/min; Potassium 3.8 mmol/L (3.5-5.1)
--- NOTE | 2023-12-05 14:14 | Cardiology Consultation ---
Date of Consultation December 05, 2023 Assessment & Plan (1) Near syncope: (2) Acute hypokalemia: (3) Hypomagnesemia: (4) Wide-complex tachycardia: Plan See supervising edge brusher's documentation for recommendations and plan of care. Supervising Physician Co-Signing Physician Notes Attending Staff: * Patient seen and evaluated with AP Staff * Concur with observations and plans 78 yo man presenting with near syncope /fall * Parkinson's * HCTZ and Losartan stopped previously * K+ 2.9 * Magnesium 1.6 * Electrolytes supplemented * TSH - WNL * Possible UTI - started on ABX * Cultures pending * NSVT prompted consultation * ECHO - LVEF 60-65%, Mild LVH, No , Mild MR, No severe PH * Troponin negative * EKG - Sinus fiona @ 59 BPM; no Ischemic Changes Plans: * NSVT likely linked to electrolyte abnormalities * Patient denied any sx of chest pain/pressure/angina * EKG WNL and Troponin WNL * K+ goal 4.5-5 * Mag goal >2 * Check TSH (longstanding constipation - one BM per week) * Consider adding Aldactone 25 mg po per day for HTN and hypokalemia * Unclear why he was hypokalemic on presentation as he is not on HCTZ (at present) or Lasix (ever). * No hypernatremia + hypokalemia suggestive an adrenal process * Patient appears to have had a mechanical fall not a syncopal event * No , HCM on ECHO * If NSVT recurs when patient has K+ and Mag++ fully repleted, may consider a very-lose dose beta wagner trial (Toprol 12.5 mg po per day) * Please call back with any additional questions Patel Alfredo History of Present Illness Reason for Consultation: Syncope; VT Requesting Physician: Anthony Hospitalist Attending Physician: Dr. Patel Alfredo History of Present Illness Patient is a 78 year old male who presented to [facility] after a fall and near syncopal episode at home. Patient with Parkinson's disease who recently moved to [place] from [facility]. Living with his daughter. He has a history of orthostatic hypotension/dizziness related to the Parkinson disease and his prior antihype rtensives were discontinued - HCTZ and losartan. Per admission notes, he was ambulating in the [address] and felt dizzy. Fell to the ground. [place] near syncopal but never lost consciousness from admission records. Upon admission, EKG demonstrated sinus bradycardia at 59 bmp without acute ischemic changes. BP has been borderline high since admission. Potassium was on admission at 2.9. Mag was low at 1.6. Both of these were supplemented with improved readings today. Mag now > 2 and potassium at 3.8 Normal TSH Possible UTI noted and started on antibiotics. Urine culture is pending. echo with normal LVEF, no wall motion abnormalities. Negative HS troponin x2 since admission. This morning patient had run of non sustained wide complex tachycardia lasting approx 20 beats. History includes: 1. Labile hypertension - now off losartan/HCTZ 2. Parkinson's disease 3. Cognitive dysfunction Allergies Allergy/AdvReac Type Severity Reaction Status Date / Time No Known Allergies Allergy Unverified 12/04/23 22:39 Home Medications Medication Instructions Recorded Confirmed Type ascorbic acid (vitamin C) 250 mg 250 mg PO DAILY 12/04/23 12/04/23 History tablet carbidopa 25 mg-levodopa 100 mg 1 tab PO UD 12/04/23 12/04/23 History tablet docusate sodium 100 mg capsule 100 mg PO DAILY PRN Constipation 12/04/23 12/04/23 History (Colace) polyethylene glycol 3350 17 gram 17 g PO DAILY PRN Constipation 12/04/23 12/04/23 History oral powder packet (Miralax) Patient History Social History Smoking Status: Never smoker Hx Alcohol Use: No Hx Substance Use: No Preferred Language: [place]ese Communication Ability: Effective Mill Stenciler Required: No Beliefs That Will Affect Care: None Current Living Situation: Spouse and Family Other Information That Helps Us Care for You: No Feels Safe at Home: Yes Safety Concerns: Feels Safe At This Time Assistive Devices: Walker Review of Systems Review of Systems: All systems reviewed & are unremarkable except as noted in HPI & below Physical Exam Physical Exam: Drawn facies No elevation in JVP [id number]/6 systolic murmur CTA B No C/C/E - warm and well-perfused Left hand tremor Results & Data Vital Signs (Past 12 Hours) Vital Signs Temp Pulse Pulse Resp BP BP Pulse Ox 12/05/23 09:34 59 L 12/05/23 08:39 12/05/23 07:43 36.9 C 68 16 165/82 H 98 12/05/23 03:58 36.7 C 65 16 169/73 H 97 O2 Del Method 12/05/23 09:34 12/05/23 08:39 Room Air 12/05/23 07:43 Room Air 12/05/23 03:58 Room Air Laboratory Results Cardiac Enzymes 12/04/23 12/05/23 Range/Units 20:30 04:36 AST 9 L (13-39) U/L Troponin I High Sens 5.7 5.7 (0-20) pg/ml CBC 12/04/23 12/05/23 Range/Units 20:30 04:36 WBC 7.39 7.68 (4.8-10.8) K/ul RBC 3.23 L 3.18 L (4.70-6.10) M/uL Hgb 10.7 L 10.4 L (14.0-18.0) g/dl Hct 29.2 L 29.0 L (42.0-52.0) % Plt Count 164 153 (130-400) K/uL Neut # (Auto) 4.80 4.13 (1.40-6.50) K/uL Lymph # (Auto) 2.15 2.94 (1.20-3.40) K/uL [place] # (Auto) 0.34 0.49 (0.11-0.59) K/uL Eos # (Auto) 0.04 0.06 (0.00-0.50) K/uL Baso # (Auto) 0.03 0.03 (0.00-0.20) K/uL Comprehensive Metabolic Panel 12/04/23 12/05/23 12/05/23 Range/Units 20:30 04:36 12:41 Sodium 140 139 140 (136-145) mmol/L Potassium 2.9 L 3.6 D 3.8 (3.5-5.1) mmol/L Chloride 105 108 H 108 H (98-107) mmol/L Carbon Dioxide 26 26 27 (21-32) mmol/L BUN 17 16 14 (6-23) mg/dl Creatinine 0.67 0.59 L 0.63 (0.6-1.4) mg/dl Glucose 112 H 93 97 (70-99(Fasting)) mg/dl Calcium 8.8 8.4 L 8.5 L (8.6-10.3) mg/dl AST 9 L (13-39) U/L ALT < 3 L (7-52) U/L Alkaline Phosphatase 63 (34-104) U/L Total Protein 6.0 (6.0-8.3) gm/dl Albumin 4.3 (3.4-5.0) gm/dl Intake and Output 12/04/23 12/05/23 12/05/23 22:59 06:59 14:59 Intake Total 200 / 690 490 / 690 1177.5 / 1177.5 Output Total Balance 200 / 689 489 / 689 1177.5 / 1177.5 Intake: IV 200 / 450 250 / 450 837.5 / 837.5 Magnesium Sulfate / D5w 1 gm In 100 / 200 100 / 200 100 ml @ 200 mls/hr IV Q30M [facility] Rx#:[id number] Potassium Chloride / Wtr 10 meq 100 / 200 100 / 200 In 100 ml @ 100 mls/hr IV Q1H [facility] Rx#:[id number] Sodium Chloride 0.9% 1,000 ml @ 837.5 / 837.5 75 mls/hr IV .[id number] [facility] Rx#: [id number] cefTRIAXone SODIUM 2,000 mg In 50 / 50 50 ml @ 100 mls/hr IV Q24H EUGENIA Rx#:[id number] Oral 240 / 240 340 / 340 Output: # Bowel Movements Other: # Unmeasured Voids 1 2 Weight 88 kg 85.9 kg Weight Measurement Method Built in [facility] Built in [facility] Diagnostic Findings Telemetry reviewed: NSR with occ PVC. one run of wide complex tachycardia lasting approx 24 beats around 11:30 AM EKG reviewed from admission 12/04/23: Sinus bradycardia at 59 bmp. Short ID interval. No ischemic changes No prior EKG's for comparison EKG reviewed from 12/05/23: NSR at 67 bmp, short ID Incomplete RBBB no significant change from previous Echo report reviewed from today 12/05/23: Normal LVEF at 60-65% Mild concentric LVH LA is mildly dilated Aortic valvular sclerosis without stenosis Mild MR, mild TR Estimated systolic pulm pressure is 40 mmHg Chest X-Ray 12/04/23 20:16 XR chest 1V portable CLINICAL HISTORY: Syncope. COMPARISON STUDY: No previous studies for comparison. FINDINGS: Lung volumes are normal. Lungs are clear. There is no pneumothorax or pleural effusion. Cardiac size is normal. Mediastinal contours are normal. There is no evidence for pulmonary edema. There are several old anterior right-sided rib fractures. IMPRESSION: No acute cardiopulmonary findings. ACT 112: Negative or not required by law. Electronically signed by: Ronald Feng M.D. 12/05/2023 7:02 AM Medications Administered Current Inpatient Medications Acetaminophen (Acetaminophen 325 Mg Tab) 650 mg PO Q4H PRN PRN Reason: Pain or Fever Stop: 01/03/24 23:31 Ascorbic Acid (Ascorbic Acid 500 Mg Tab) 250 mg PO DAILY EUGENIA Stop: 01/04/24 08:59 Last Admin: 12/05/23 08:21 Dose: 250 mg Carbidopa/Levodopa (Carbidopa/Levodopa 25/100mg Tab) 1.5 tab PO 0800,1200,1600 EUGENIA Stop: 01/04/24 07:59 Last Admin: 12/05/23 11:10 Dose: 1.5 tab Docusate Sodium (Docusate Sodium 100 Mg Cap) 100 mg PO DAILY PRN PRN Reason: Constipation Stop: 01/03/24 23:31 Enoxaparin Sodium (Enoxaparin Inj 40 Mg/0.4 Ml Syr) 40 mg SQ Q24H EUGENIA Stop: 01/04/24 07:59 Last Admin: 12/05/23 08:21 Dose: 40 mg Ceftriaxone Sodium (Rocephin) 2,000 mg in 50 mls @ 100 mls/hr IV Q24H EUGENIA Stop: 12/15/23 00:00 Last Infusion: 12/05/23 00:32 Dose: Infused Nitroglycerin (Nitroglycerin Sl 0.4 Mg/Tab Tab) 0.4 mg SL Q5M PRN PRN Reason: Chest Pain Stop: 01/03/24 23:31 Polyethylene Glycol (Polyethylene (Miralax) 17 Gm Pack) 17 gm PO DAILY PRN PRN Reason: Constipation Stop: 01/03/24 23:31
[2023-12-05] MEDS: POTASSIUM CHLORIDE CRTAB 20 MEQ TABCR PO STA (16:34)
[2023-12-06 06:37] LABS: Hematocrit (blood only) 28.5 % (42.0-52.0); Hemoglobin 10.4 g/dl (14.0-18.0); Mean Corpuscular Hemoglobin 32.9 pg (25.0-34.0); Mean Corpuscular Hgb Conc 36.5 g/dL (32.0-36.0); Mean Corpuscular Volume 90.2 fL (80.0-100.0); Mean Platelet Volume 10.5 fL (9.4-12.4); Platelet Count 148 K/uL (130-400); RDW Coefficient of Variation 13.5 % (11.5-14.5); RDW Standard Deviation 44.3 fL (36.4-46.3); Red Blood Count 3.16 M/uL (4.70-6.10); White Blood Count 5.35 K/ul (4.8-10.8)
[2023-12-06 06:49] LABS: Calcium 8.4 mg/dl (8.6-10.3); Creatinine Clr Calc Pharmacy 116.9 ml/min; Potassium 3.8 mmol/L (3.5-5.1)
--- NOTE | 2023-12-06 07:42 | Hospitalist Progress Note ---
Date of Service December 06, 2023 Assessment & Plan (1) Near syncope: (2) Acute hypokalemia: (3) Hypomagnesemia: (4) Wide-complex tachycardia: (5) Parkinson's disease: Plan 78-year-old male with past medical history significant for Parkinson disease who recently moved with his to [facility] from [facility] and currently living with his daughter and the plan for assisted living soon presents because of fall and near syncope. As per patient he fell in the [address] [place]. And was also little woozy and almost passing out. When he fell he did not hit his head. Question of loss of consciousness but patient declines it. Patient is able to give his history. Currently resting comfortably and hemodynamically stable. As per PCP notes symptoms stable off of Flomax for BPH. And hypertension is stable off of losartan hydrochlorothiazide. Moderate cognitive impairment with Mini-Mental exam . Near syncope Fall Acute - admit in PCU Gentle fluids; continue for now x1 bag and discontinue given patient is eating ECHO completed: EF 60-65%, mild LVH, mild MR/TR No leukocytosis Neurology consult given Sinemet and likely syncope secondary to Parkinsons orthostasis Ortho BP's this AM: lying 178/75, sitting 170/76, standing 174/76 TSH 1.908 trend BMP/Mg+ in AM PT/OT ordered Monomorphic ventricular tachycardia: Acute Cards consult; appreciate recommendations; will start low dose metoprolol succinate 12.5mg daily 12/05/23; 24 beat run VT around 1130 with some intermittent dizziness (unsure if dizziness coincided exactly with VT) repeat lytes and ECG Repleted K+ to keep 4.5-5 ECG NSR with some Twave inversion Ca+ 8.4; continue Aldactone 12.5 daily Vitamin D level 33.2 HTN: Chronic BP elevated this AM; 191/78 Known HTN, was on Losartan and HCTZ in the past; discontinued prior to admission from orthostasis Gave low dose Lisinopril 2.5 PO daily; continue daily Parkinson disease Chronic Continue Sinemet Neurology consult; saw Neuro as outpatient on 10/26 to establish care. UTI Possibly contributing to symptoms, low suspicion On Rocephin; UA obtained + Nitrates and WBC Urine culture no growth so far; will discontinue IV Rocephin Anemia Hemoglobin 10.7; no signs of overt bleeding Will check stool for Hemoccult Iron studies, vitamin B12 level 205 folate level normal 6.05 No leukocytosis Hypokalemia and hypomagnesia Replaced in ED; administered 1G Mg+ this AM Mg+ 1.9 this AM and K+ 3.8 Constipation Continue stool softeners as needed History of vitamin B12 deficiency Receives B12 shots serum B12 205 in ED Anemia Hemoglobin 10.7; no signs of overt bleeding Will check stool for Hemoccult Iron studies, vitamin B12 level 205 folate level normal 6.05 Disposition: VTE Prophylaxis:Lovenox SQ/thigh high teds Code Status: Full Code Disposition: Med/telemetry; prior to ED was working on Culture Machine/[place] for H options Case management to assist with placement I spent a total of 56 minutes coordinating, documenting, and providing care for this patient excluding time spent in the performance of separately billed services. All of the aforementioned completed while collaborating with the assigned attending physician for a full treatment plan. Please see their addendum for further details. Admission and Anticipated Discharge Date Admission Date: December 04, 2023 Supervising Physician Co-Signing Physician Notes I have seen and discussed the case with the collaborating advanced practitioner. I agree with the above PN. I have reviewed and confirmed the patients medical history, the findings on physical examination, and the patients diagnosis and treatment plan with Kermit PASTOR and agree with the information documented. NSVT--low dose metoprolol added Plan for ACEi in am--5mg daily, continue spironolactone continue PD rx pending placement once BP stable I spent a total of 5 minutes coordinating, documenting, and providing care for this patient excluding time spent in the performance of separately billed services. All of the aforementioned completed outside of collaborating with the assigned advanced practitioner for a full treatment plan. I have reviewed the advanced practitioner's documentation, and I agree with, and take responsibility for the plan of care Subjective Pt sitting in his hospital bed in no apparent distress He had 9 beat run of asymptomatic VT this morning around 0840. Pt remains asymptomatic; denies PRECIADO, dizziness, SOB, chest pain, N/V/D, lightheadedness, hematachezia Please see A/P for further details Review of Systems Review of Systems: Neuro: (-) Falls, trauma, slurred speech HEENT: (-) PRECIADO, dizziness, dysphagia, visual or auditory changes CV: (-) CP, palpitations, swelling Resp: (-) SOB GI: (-) appetite changes, N/V/D, bowel changes : (-) urinary changes Skin: (-) rashes Psych: (-) anxiety, depression Physical Exam Physical Exam: Neuro: AAOx4, PERRLA, no aphagia, memory changes, CNII-XII grossly intact HEENT: head normocephalic, moist mucus membranes CV: S1/S2, (-) M/G/R, (-) edema, cap refill < 3 seconds Resp: Lungs CTA in all parekh. On RA GI: Abdomen S/NT/ND, Ax4 bowel sounds, (-) CVA tenderness Musculoskeletal: 5/5 B/L UE strength, 5/5 B/L LE strength. No gait disturbance Skin: (-) rashes , (-) erythema. (+) redness on his forehead with raised bumps; this is normal for him and flares with his parkinsons symptoms Psych: euthymic mood Results & Data Results & Data Vital Signs (Past 12 Hours) Vital Signs Temp Pulse Pulse Resp BP Pulse Ox O2 Del Method 12/06/23 07:36 36.3 C L 67 20 191/78 H 98 Room Air 12/06/23 02:54 36.6 C 74 18 169/84 H 97 Room Air 12/06/23 00:00 76 12/05/23 22:54 36.6 C 66 18 151/71 H 97 Room Air 12/05/23 19:55 36.4 C L 62 18 146/71 H 97 Room Air Laboratory Results Short CBC 12/06/23 Range/Units 06:09 WBC 5.35 (4.8-10.8) K/ul Hgb 10.4 L (14.0-18.0) g/dl Hct 28.5 L (42.0-52.0) % Plt Count 148 (130-400) K/uL BMP 12/05/23 12/06/23 12:41 06:09 Sodium 140 141 Potassium 3.8 3.8 Chloride 108 H 109 H Carbon Dioxide 27 26 BUN 14 13 Creatinine 0.63 0.59 L Glucose 97 85 Calcium 8.5 L 8.4 L (5) Parkinson's disease Dyskinesia presence: with dyskinesia Fluctuating manifestations: with fluctuating manifestations Qualified Code(s): G20.B2 - Parkinson's disease with dyskinesia, with fluctuations
[2023-12-06 07:58] LABS: Magnesium 1.9 mg/dl (1.7-2.4)
[2023-12-06] MEDS: SPIRONOLACTONE 25 MG TAB PO SCH (08:50)
[2023-12-06] MEDS: lisinopril 2.5 MG TAB PO SCH (08:50)
[2023-12-06] MEDS ORDERED: SPIRONOLACTONE 12.5 MG TAB PO SCH (09:00)
--- NOTE | 2023-12-06 09:08 | Electrocardiogram Report ---
Test Reason : Blood Pressure : */* mmHG Vent. Rate : 62 BPM Atrial Rate : 62 BPM P-R Int : 142 ms QRS Dur : 84 ms QT Int : 414 ms P-R-T Axes : 40 14 3 degrees QTcB Int : 420 ms Normal sinus rhythm Normal ECG When compared with ECG of 05-Dec-2023 06:20, No significant change Confirmed by Preet Wills ([id number]) on 12/06/2023 9:07:48 AM Referred By: REFERRED SELF Confirmed By: Preet Wills
[2023-12-06] MEDS: MAGNESIUM SULFATE / D5W 1 GM/100 ML BAG IV ONE (09:18)
--- NOTE | 2023-12-06 09:36 | Electrocardiogram Report ---
Test Reason : Blood Pressure : */* mmHG Vent. Rate : 66 BPM Atrial Rate : 66 BPM P-R Int : 138 ms QRS Dur : 90 ms QT Int : 402 ms P-R-T Axes : 67 61 65 degrees QTcB Int : 421 ms Poor data quality, interpretation may be adversely affected Normal sinus rhythm Normal ECG When compared with ECG of 05-Dec-2023 14:08, No significant change Confirmed by Preet Wills ([id number]) on 12/06/2023 9:36:35 AM Referred By: REFERRED SELF Confirmed By: Preet Wills
--- NOTE | 2023-12-06 11:26 | Electrocardiogram Report ---
Test Reason : Blood Pressure : */* mmHG Vent. Rate : 68 BPM Atrial Rate : 68 BPM P-R Int : 132 ms QRS Dur : 92 ms QT Int : 406 ms P-R-T Axes : 39 14 23 degrees QTcB Int : 431 ms Normal sinus rhythm Normal ECG When compared with ECG of 06-Dec-2023 05:27, No significant change Confirmed by Preet Wills ([id number]) on 12/06/2023 11:25:52 AM Referred By: REFERRED SELF Confirmed By: Preet Wills
[2023-12-06] MEDS: METOPROLOL SUCC 25MG EXT REL TAB PO SCH (14:35)
[2023-12-07 06:38] LABS: Hematocrit (blood only) 28.6 % (42.0-52.0); Hemoglobin 10.4 g/dl (14.0-18.0); Mean Corpuscular Hemoglobin 32.8 pg (25.0-34.0); Mean Corpuscular Hgb Conc 36.4 g/dL (32.0-36.0); Mean Corpuscular Volume 90.2 fL (80.0-100.0); Mean Platelet Volume 10.5 fL (9.4-12.4); Platelet Count 156 K/uL (130-400); RDW Coefficient of Variation 13.5 % (11.5-14.5); RDW Standard Deviation 44.6 fL (36.4-46.3); Red Blood Count 3.17 M/uL (4.70-6.10); White Blood Count 5.31 K/ul (4.8-10.8)
[2023-12-07 07:00] LABS: BUN Creatinine Ratio 23.9 (10-20); Calcium 8.6 mg/dl (8.6-10.3); Potassium 3.8 mmol/L (3.5-5.1)
--- NOTE | 2023-12-07 07:22 | Hospitalist Progress Note ---
Date of Service December 07, 2023 Assessment & Plan (1) Near syncope: (2) Acute hypokalemia: (3) Hypomagnesemia: (4) Wide-complex tachycardia: (5) Parkinson's disease: (6) Seborrheic dermatitis: Plan 78-year-old male with past medical history significant for Parkinson disease who recently moved with his to [facility] from [facility] and currently living with his daughter and the plan for assisted living soon presents because of fall and near syncope. As per patient he fell in the hallway once. And was also little woozy and almost passing out. When he fell he did not hit his head. Question of loss of consciousness but patient declines it. Patient is able to give his history. Currently resting comfortably and hemodynamically stable. As per PCP notes symptoms stable off of Flomax for BPH. And hypertension is stable off of losartan hydrochlorothiazide. Moderate cognitive impairment with Mini-Mental exam . Near syncope Fall Acute - admit in PCU Gentle fluids; continue for now x1 bag and discontinue given patient is eating ECHO completed: EF 60-65%, mild LVH, mild MR/TR No leukocytosis Neurology consult given Sinemet and likely syncope secondary to Parkinsons orthostasis Ortho BP's this AM: lying 178/75, sitting 170/76, standing 174/76 TSH 1.908 trend BMP/Mg+ in AM; 12/06 Mg+ 2.0, K+ 3.8 PT/OT ordered Monomorphic ventricular tachycardia: Acute Cards consult; appreciate recommendations; low dose metoprolol succinate 12.5mg daily 12/06/23: No VT noted on monitor since 0840 yesterday 12/05. 12/05/23; 24 beat run VT around 1130 with some intermittent dizziness (unsure if dizziness coincided exactly with VT) repeat lytes and ECG keep 4.5-5 range ECG NSR with some Twave inversion Ca+ 8.4; continue Aldactone 12.5 daily Vitamin D level 33.2 HTN: Chronic BP elevated this AM; 191/78 since new meds started on 12/05 Known HTN, was on Losartan and HCTZ in the past; discontinued prior to admission from orthostasis Cardiology added metoprolol yesterday for beta-blockade for NSVT, I added lisinopril on 12/05 5 mg p.o. daily. Parkinson disease: Seborrheic dermatitis: Chronic Continue Sinemet Neurology consult; saw Neuro as outpatient on 10/26 to establish care. No changes to medications Seborrheic dermatitis typically flaring with his Parkinson's disease per patient; usually uses propa pH solution which we do not have on formulary here. Ordered triamcinolone 0.025%; safer facial application. For reference, if not effective; can increase to 0.05% or 0.1% for facial application up to BID. Continue to monitor. UTI: Resolved low suspicion to have been contributing factor to symptoms UA obtained + Nitrates and WBC Urine culture no growth so far; IV Rocephin has been discontinued Anemia Hemoglobin 10.4; no signs of overt bleeding Will check stool for Hemoccult Iron studies, vitamin B12 level 205 folate level normal 6.05 No leukocytosis Hypokalemia and hypomagnesia Replaced in ED; administered 1G Mg+ this AM Mg+ 1.9 this AM and K+ 3.8 Constipation Continue stool softeners as needed History of vitamin B12 deficiency Receives B12 shots serum B12 205 in ED Anemia Hemoglobin 10.7; no signs of overt bleeding Will check stool for Hemoccult Iron studies, vitamin B12 level 205 folate level normal 6.05 Disposition: VTE Prophylaxis:Lovenox SQ/thigh high teds Code Status: Full Code Disposition: Med/telemetry; ok to downgrade to med/surg if no cardiac symptoms on 12/07 Case management to assist with placement to [facility] (likely Friday 12/08). also has dementia, they will share a room. I spent a total of 564physician for a full treatment plan. Please see their addendum for further details. Admission and Anticipated Discharge Date Admission Date: December 04, 2023 Supervising Physician Co-Signing Physician Notes I have seen and examined the patient at bedside. Discussed the case with the collaborating advanced practitioner. I agree with the documentation as above. I have reviewed and confirmed the patients medical history, thefindings on physical examination, and the patients diagnosis and treatment plan with Kermit PASTOR and agree with the information documented. Note has been edited as needed. Patient subjectively feels well today Reports having recurrent facial rash/likely seborrheic dermatitis--resolves spontaneously: Trial of triamcinolone cream. Advised to follow-up with dermatology as outpatient Offers no other complaints today Continue metoprolol for NSVT Orthostatic hypotension: Continue current medications monitor closely Replete electrolytes as needed Continue teds Rehab likely Tuesday Subjective Patient sitting upright in his hospital bed in no apparent distress. Patient denies chest pain, dizziness, shortness of breath, chest pain. No VT noted on monitor since 0840 yesterday 12/05. He has a forehead rash with pruritus (likely seborrheic dermatitis) that typically flares with his Parkinson's disease per patient; usually uses probe a pH solution which we do not have on formulary here. Patient will bring in next time she comes in. In the meantime ordered triamcinolone 0.025% which I double checked is safe for facial application. Please see A/P for further details. Review of Systems Review of Systems: Neuro: (-) Falls, trauma, slurred speech HEENT: (-) PRECIADO, dizziness, dysphagia, visual or auditory changes CV: (-) CP, palpitations, swelling Resp: (-) SOB GI: (-) appetite changes, N/V/D, bowel changes : (-) urinary changes Skin: (+) pruritic forehead rash with white bumps. This is common for him. Psych: (-) anxiety, depression Physical Exam Physical Exam: Neuro: AAOx4, PERRLA, no aphagia, memory changes, CNII-XII grossly intact HEENT: head normocephalic, moist mucus membranes CV: S1/S2, (-) M/G/R, (-) edema, cap refill < 3 seconds Resp: Lungs CTA in all parekh. On RA GI: Abdomen S/NT/ND, Ax4 bowel sounds, (-) CVA tenderness Musculoskeletal: 5/5 B/L UE strength, 5/5 B/L LE strength. No gait disturbance Skin: (-) rashes , (-) erythema. (+) redness on his forehead with raised bumps; this is normal for him and flares with his parkinsons symptoms Psych: euthymic mood Results & Data Results & Data Vital Signs (Past 12 Hours) Vital Signs Temp Pulse Resp BP Pulse Ox O2 Del Method 12/07/23 04:08 36.6 C 59 L 18 173/74 H 100 Room Air 12/06/23 23:28 36.7 C 64 18 165/76 H 98 Room Air 12/06/23 20:34 36.8 C 85 18 165/81 H 97 Room Air Laboratory Results Short CBC 12/07/23 Range/Units 05:49 WBC 5.31 (4.8-10.8) K/ul Hgb 10.4 L (14.0-18.0) g/dl Hct 28.6 L (42.0-52.0) % Plt Count 156 (130-400) K/uL BMP 12/07/23 05:49 Sodium 141 Potassium 3.8 Chloride 108 H Carbon Dioxide 27 BUN 16 Creatinine 0.67 Glucose 85 Calcium 8.6 (5) Parkinson's disease Dyskinesia presence: with dyskinesia Fluctuating manifestations: with fluctuating manifestations Qualified Code(s): G20.B2 - Parkinson's disease with dyskinesia, with fluctuations
[2023-12-07] MEDS: lisinopril 5 MG TAB PO SCH (08:33)
[2023-12-07] MEDS ORDERED: lisinopril 2.5 MG TAB PO SCH (09:00)
[2023-12-07] MEDS: TRIAMCINOLONE ACET 0.025% CR 15 GM TUBE EXT PRN (13:10)
[2023-12-08] MEDS: ACETAMINOPHEN 325 MG TAB PO PRN (11:29)
--- NOTE | 2023-12-08 13:54 | Hospitalist Progress Note ---
Date of Service December 08, 2023 Assessment & Plan (1) Near syncope: (2) Acute hypokalemia: (3) Hypomagnesemia: (4) Wide-complex tachycardia: (5) Parkinson's disease: (6) Seborrheic dermatitis: Plan Jos Khan is a 78y/o M with PMHx significant for Parkinson's disease who recently moved with his to the [facility] from the [facility]. He is currently living with his daughter. He presented on 12/04/2023 due to a fall and near syncopal event. Per patient, he fell in the hallway once at his daughter's house. Denies passing out but states he was feeling quite woozy. He did not hit his head during this fall. Patient is able to give his history. As per PCP documentation, notes symptoms stable off of Flomax for BPH and his hypertension is stable off of losartan-HCTZ. Moderate cognitive impairment with Mini-Mental State Examination score of 15/30 on 10/21/2023. Fall & Near Syncope: Was treated with gentle IVF and started on regular diet; lightheadedness and dizziness significantly improved. Echo was completed 12/05/2023 and showed the following: LVEF 60 to 65%, mild concentric LVH, mildly dilated left atrium, mildly aortic valve sclerosis, mild tricuspid regurgitation and mild mitral regurgitation. Per neurology --> near syncopal event likely related to orthostatic hypotension due to Parkinson's disease exacerbated by inflammatory state secondary to ? suspected UTI at presentation, mild dehydration. Orthostati c BPs yesterday: lying 178/75, sitting 170/76 and standing 174/76. Patient appears to have had a mechanical fall, not a syncopal event. Monomorphic Ventricular Tachycardia (NSVT): Acute; cardiology consult, appreciate recommendations --> low dose metoprolol succinate 12.5mg daily added on. 12/08/23 --> 10-beat run of NSVT overnight, patient was completely asymptomatic. 12/06/23 --> No VT noted on monitor since yesterday. 12/05/23 --> 24-beat run of NSVT around 11:30 with some intermittent dizziness (unsure if dizziness coincided exactly with VT). ECG NSR with some Twave inversions. HTN, Electrolyte Abnormalities: Chronic, added on Aldactone 25mg po daily for HTN and hypokalemia. Unclear why he was hypokalemic on presentation as he is not on HCTZ (at present) or Lasix (ever). Electrolyte abnormalities treated PRN. Mag 2.0, K+ 3.8 yesterday. Known HTN, was on Losartan and HCTZ in the past - both were discontinued prior to admission due to orthostasis. BP was elevated this AM; lisinopril 5mg daily was added on 12/06/2023. May need to increase lisinopril dose to 10mg tomorrow AM if BP becomes elevated again. BP improved this afternoon. Parkinson's Disease, Seborrheic Dermatitis: Chronic, continue Sinemet. He saw [facility]rology at [facility] on 10/27/2023 to establish care --> no changes to medications. Seborrheic dermatitis typically flaring with his Parkinson's disease per patient; usually uses Propa pH solution which we do not have on formulary here. Ordered triamcinolone 0.025%; safer facial application. For reference, if not effective; can increase to 0.05% or 0.1% for facial application up to BID. Continue to monitor. Anemia, H/O B12 Deficiency: Hemoglobin has remained stable ~10.4-10.7 during admission; no signs of overt bleeding. Iron studies, vitamin levels (B12/folate) unremarkable. Receives B12 shots. Constipation: Continue stool softeners PRN, patient with normal BM this AM. UTI - Ruled out: Low suspicion to have been contributing factor to symptoms. UA obtained and was positive for Nitrates + WBC. Was initially on IV Rocephin however urine cx was negative --> ABX therefore discontinued. DVT Prophylaxis: SQ Lovenox/TEDs Code Status: FULL CODE PCP: DARBY Castle Disposition: Admitted in PCU/Telemetry - Spoke with CM (Julieta Weeks) via TT. Patient was initially expected to go to [facility] tomorrow, however patient's daughter (Claudia) reports that now the patient will be going to [place] on Tuesday for admission to personal care. Claudia will be taking the patient home to her house tomorrow and will be providing 24/7 care for him until she takes him to [place] on Tuesday. Patient's will also be going to [place] with him. She will be picking him up around 10:30AM tomorrow. Updated Claudia over the phone regarding his new medications. Patient seen in collaboration with Dr. Monae. Please see addendum. I spent a total of 50 minutes coordinating, documenting, and providing care for this patient excluding time spent in the performance of separately billed services. This included personally reviewing all current laboratories and imaging studies, medical reconciliation, outpatient chart review and discussion with specialists. This chart was completed in part utilizing Speech Voice Recognition Software. Grammatical errors, random word insertions, pronoun errors, and incomplete sente nces are an occasional consequence of this system due to software limitations, ambient noise, and hardware issues. Any formal questions or concerns about the content, text, or information contained within the body of this dictation should be directly addressed to the provider for clarification. Admission and Anticipated Discharge Date Admission Date: December 04, 2023 Supervising Physician Co-Signing Physician Notes I have seen and examined the patient at bedside. Discussed the case with the collaborating advanced practitioner. I agree with the documentation as above. I have reviewed and confirmed the patients medical history, thefindings on physical examination, and the patients diagnosis and treatment plan with Jade Millan PA-C and agree with the information documented. Note has been edited as needed. States having headache today Reports poor sleep overnight Blood pressure elevated this morning but later improved Family at bedside Monitor blood pressure closely Consider increasing lisinopril to 10 mg daily persistent elevation of blood pressure Continue metoprolol succinate for NSVT Waiting for placement Subjective Patient without any complaints this morning, denies any lightheadedness or dizziness. Ate breakfast without issue. Reports that he is ready to go to [facility] to see his . He had another 10-beat run of NSVT overnight but was asymptomatic when this occurred per nursing staff. Review of Systems Review of Systems: At least ten systems reviewed and negative, except as noted in the subjective section. Physical Exam Physical Exam: General: WD/WN, vitals as above, NAD, sitting up in bed, pleasant, conversing appropriately. A+Ox3, euthymic affect. HEENT: Normocephalic, atraumatic. PERRL, conjunctivae normal, anicteric sclerae. External ear and nose normal, oropharynx normal. Respiratory: Normal respiratory effort, lungs clear to auscultation, no wheeze, rales, rhonchi. No accessory muscle use. Cardiovascular: Regular rate, rhythm, no murmur, normal peripheral pulses, no BLE edema. Vessels: No JVD. Abdomen/GI: Normal bowel sounds, soft, nontender, no hepatosplenomegaly. Extremities/Musculoskeletal: No cyanosis or clubbing, extremities motor strength intact, moves all extremities. Neurologic: EOMI, no focal deficits, CN's II-XI not formally tested but appear grossly intact bilaterally. Skin: Warm/dry, erythematous pruritic rash with white bumps visualized across his upper forehead region. Results & Data Results & Data Vital Signs (Past 12 Hours) Vital Signs Temp Pulse Pulse Resp BP Pulse Ox O2 Del Method 12/08/23 11:42 36.4 C L 97 Room Air 12/08/23 08:14 36.9 C 63 18 170/79 H 98 Room Air 12/08/23 08:00 74 12/08/23 03:23 36.4 C L 68 20 152/78 H 98 Room Air (5) Parkinson's disease Dyskinesia presence: with dyskinesia Fluctuating manifestations: with fluctuating manifestations Qualified Code(s): G20.B2 - Parkinson's disease with dyskinesia, with fluctuations
[2023-12-09 07:43] VITALS: RESP 20; TEMP 97.9; O2SAT 97
[2023-12-09] MEDS ORDERED: lisinopril 10 MG TAB PO SCH (09:00)
--- NOTE | 2023-12-09 11:16 | Discharge Summary ---
Discharge Summary Date of Service December 09, 2023 Principal Dx & Hospital Course #1 = Principal Diagnosis (1) Near syncope: (2) Acute hypokalemia: (3) Hypomagnesemia: (4) Wide-complex tachycardia: (5) Parkinson's disease: (6) Seborrheic dermatitis: Cristhian Khan is a 78y/o M with PMHx significant for Parkinson's disease who recently moved with his to the [facility] from the [facility]. He is currently living with his daughter. He presented on 12/04/2023 due to a fall and near syncopal event. Per patient, he fell in the hallway once at his daughter's house. Denies passing out but states he was feeling quite woozy. He did not hit his head during this fall. Patient is able to give his history. As per PCP documentation, notes symptoms stable off of Flomax for BPH and his hypertension is stable off of losartan-HCTZ. Moderate cognitive impairment with Mini-Mental State Examination score of 15/30 on 10/21/2023. Fall & Near Syncope: Was treated with gentle IVF and started on regular diet; lightheadedness and dizziness significantly improved. Echo was completed 12/05/2023 and showed the following: LVEF 60 to 65%, mild concentric LVH, mildly dilated left atrium, mi ldly aortic valve sclerosis, mild tricuspid regurgitation and mild mitral regurgitation. Per neurology --> near syncopal event likely related to orthostatic hypotension due to Parkinson's disease exacerbated by inflammatory state secondary to ? suspected UTI at presentation, mild dehydration. Orthostatic BPs yesterday: lying 178/75, sitting 170/76 and standing 174/76. Patient appears to have had a mechanical fall, not a syncopal event. Monomorphic Ventricular Tachycardia (NSVT): Acute; cardiology consult --> low dose metoprolol succinate 12.5mg daily added on. 12/08/23 --> 10-beat run of NSVT overnight, patient was completely asymptomatic. 12/06/23 --> No VT noted on monitor since yesterday. 12/05/23 --> 24-beat run of NSVT around 11:30 with some intermittent dizziness (unsure if dizziness coincided exactly with VT). ECG NSR with some Twave inversions. HTN, Electrolyte Abnormalities: Chronic, added on Aldactone 25mg po daily for HTN and hypokalemia. Unclear why he was hypokalemic on presentation as he is not on HCTZ (at present) or Lasix (ever). Electrolyte abnormalities were treated PRN. Known HTN, was on Losartan and HCTZ in the past - both were discontinued prior to admission due to orthostasis. Lisinopril 5mg daily was added on 12/06/2023 due to persistent hypertension. Lisinopril dose was increased to 10mg daily at time of discharge as his BP was still elevated this morning. Parkinson's Disease, Seborrheic Dermatitis: Chronic, continue Sinemet. He saw [facility]rology at [facility] on 10/27/2023 to establish care --> no changes to medications. Seborrheic dermatitis typically flaring with his Parkinson's disease per patient; usually uses Propa pH solution which we do not have on formulary here. Ordered triamcinolone 0.025%; safer facial application. Anemia, H/O B12 Deficiency: Hemoglobin has remained stable ~10.4-10.7 during admission; no signs of overt bleeding. Iron studies, vitamin levels (B12/folate) unremarkable. Receives B12 shots. UTI - Ruled out: Low suspicion to have been contributing factor to symptoms. UA obtained and was positive for Nitrates + WBC. Was initially on IV Rocephin however urine cx was negative --> ABX therefore discontinued. PCP: DARBY Castle Disposition: Patient was initially expected to go to [facility], however his daughter was able to get a room for both of her parents at [place] to share. Claudia will be taking the patient home to her house today and will be providing 24/ care for both of her parents until they go to [place] on Tuesday. Patient seen in collaboration with Dr. Monae. Please see addendum. I spent a total of 60 minutes coordinating, documenting, and providing care for this patient excluding time spent in the performance of separately billed services. This included personally reviewing all current laboratories and imaging studies, medical reconciliation, outpatient chart review and discussion with specialists. This chart was completed in part utilizing Speech Voice Recognition Software. Grammatical errors, random word insertions, pronoun errors, and incomplete sentences are an occasional consequence of this system due to software limitations, ambient noise, and hardware issues. Any formal questions or concerns about the content, text, or information contained within the body of this dictation should be directly addressed to the provider for clarification. Notes For Next Care Provider Please monitor his BP as we recently started him on lisinopril 10mg daily, metoprolol succinate 12.5mg daily and spironolactone 25mg daily. Medication Changes From Visit 1. Lisinopril 10mg DAILY. 2. Metoprolol succinate 12.5mg DAILY. 3. Spironolactone 25mg DAILY. 4. Triamcinolone cream for seborrheic dermatitis of forehead region. Admission HPI Per Admitting Provider 78-year-old male with past medical history significant for Parkinson disease who recently moved with his to [facility] from [facility] and currently living with his daughter and the plan for assisted living soon presents because of fall and near syncope. As per patient he fell in the hallway once. And was also little woozy and almost passing out. When he fell he did not hit his head. Question of loss of consciousness but patient declines it. Patient is able to give his history. Currently resting comfortably and hemodynamically stable. Denies any headache. Vision is okay. No runny nose or sore throat or cough. No fevers. Appetite is okay. No difficulty swallowing. No chest pain or shortness of. No nausea. No abdominal pain. Somewhat constipated. Micturating okay. History of syncope and hypertension.. As per PCP notes losartan/ hydrochlorothiazide and Flomax was discontinued due to orthostatic hypotension. As per PCP notes symptoms stable off of Flomax for BPH. And hypertension is stable off of losartan hydrochlorothiazide. Moderate cognitive impairment with Mini-Mental exam 15/30. Past medical history. As mentioned above. Past surgical history. No surgical history on file. Social history. . No smoking. Alcohol rarely. No drug use Family history. Mother had dementia. Father had heart attack. Admission Exam Per Admitting Provider General- Not in acute distress Head- atraumatic Eyes- PERRL. ENT- oropharynx clear Neck- supple, no JVD. Lungs- clear to auscultation no wheezing or crackles Heart- regular rate and rhythm; no murmur, no gallop. Abdomen- normal bowel sounds, soft, nontender, no distension Extremities- no pretibial edema, no erythema seen Neuro- alert, oriented PERRL, no facial palsy; no dysarthria; moves extremities power 4-5/5 in all extremities Discharge Exam General: WD/WN, vitals as above, NAD, sitting up in bed, pleasant, conversing appropriately. A+Ox3, euthymic affect. HEENT: Normocephalic, atraumatic. PERRL, conjunctivae normal, anicteric sclerae. External ear and nose normal, oropharynx normal. Respiratory: Normal respiratory effort, lungs clear to auscultation, no wheeze, rales, rhonchi. No accessory muscle use. Cardiovascular: Regular rate, rhythm, no murmur, normal peripheral pulses, no BLE edema. Vessels: No JVD. Abdomen/GI: Normal bowel sounds, soft, nontender, no hepatosplenomegaly. Extremities/Musculoskeletal: No cyanosis or clubbing, extremities motor strength intact, moves all extremities. Neurologic: EOMI, no focal deficits, CN's II-XI not formally tested but appear grossly intact bilaterally. Skin: Warm/dry, erythematous pruritic rash with white bumps visualized across his upper forehead region. Updated Medication List Medication Instructions Recorded Confirmed Type ascorbic acid (vitamin C) 250 mg 250 mg PO DAILY 12/04/23 12/04/23 History tablet carbidopa 25 mg-levodopa 100 mg 1 tab PO UD 12/04/23 12/04/23 History tablet docusate sodium 100 mg capsule 100 mg PO DAILY PRN Constipation 12/04/23 12/04/23 History (Colace) polyethylene glycol 3350 17 gram 17 g PO DAILY PRN Constipation 12/04/23 12/04/23 History oral powder packet (Miralax) lisinopril 10 mg tablet 10 mg PO QAM #30 tabs 12/09/23 Rx metoprolol succinate 25 mg 12.5 mg (1/2 x 25 mg) PO QAM #30 12/09/23 Rx tablet,extended release 24 hr tabs spironolactone 25 mg tablet 25 mg PO DAILY #30 tabs 12/09/23 Rx triamcinolone acetonide 0.025 % 1 applic EXT BID PRN Rash/Itching 12/09/23 Rx topical cream #15 grams Hospital Stay Data Consultations 12/04/23 21:46 ED Decision to Admit Stat 12/05/23 10:09 Consult Neurology Routine 12/05/23 12:33 Consult Cardiology Routine Pending Results Patient Have Any Pending Studies at Discharge: No Discharge Instructions Given to Patient (Per Discharging Provider) Dayne Yi were admitted to the hospital after sustaining a fall and near syncopal event at home. You were seen and evaluated by neurology who determined that your near syncopal event was likely related to orthostatic hypotension as a result of your Parkinson's disease and mild dehydration. Your lightheadedness and dizziness significantly proved with IV fluids. You were found to have run of nonsustained ventricular tachycardia (NSVT) while you were admitted. Ventricular tachycardia is caused by a problem with the heart's electrical system. The heart's ventricles (the main parts of the heart that pump blood) send abnormal electrical signals that speed up the heartbeat. We performed an echocardiogram, also known as an ultrasound of your heart, which thankfully showed no abnormalities. We did start you on a medication called METOPROLOL SUCCINATE to help control your heart rate. Metoprolol succinate is a beta wagner medication, which blocks some of the effects of the sympathetic nervous system (which increases the heart rate and raises blood pressure with stress and/or activity). Beta blockers lower blood pressure in part by decreasing the rate and force at which the heart pumps blood. Please take this medication as prescribed! You were also found to have an elevated blood pressure while you were admitted. We started you on a medication called LISINOPRIL to help control your blood pressure. Lisinopril is an MIKALA inhibitor medication. Angiotensin-converting enzyme (MIKALA) inhibitors block production of the hormone, angiotensin II, a compound in the blood that causes narrowing of blood vessels and increases blood pressure. By reducing production of angiotensin II, MIKALA inhibitors allow blood vessels to widen, which lowers blood pressure and improves heart output. Please take this medication as prescribed! We also started you on a medication called SPIRONOLACTONE to help increase your potassium level and better control you blood pressure. Spironolactone is a potassium-sparing diuretic (water pill) that is primarily used to treat high blood pressure. Please take this medication as prescribed! Please try to keep track of your blood pressure at home. Your primary care doctor will be able to adjust the dosing of your metoprolol succinate, lisinopril and spironolactone as needed. For now, please take all three medications as prescribed! You were also prescribed TRIAMCINOLONE CREAM while you were admitted to help with the itchy rash on your forehead region. This rash is more than likely seborrheic dermatitis. Seborrheic dermatitis is a very common skin condition that causes inflammation, scaly or flaky patches, and sometimes itching. It usually affects areas with many oil glands. These include the scalp, face, upper chest, and back. Dandruff, for example, is a mild type of seborrheic dermatitis. Stress can make seborrheic dermatitis worse and it often gets worse in winter, when the weather is cold and dry. Triamcinolone cream is a topical corticosteroid that helps alleviate the itching sensation. Please use this medication as needed for bothersome itching caused by the rash on your forehead, however do NOT use this medication more than 2 times per day! NEW MEDICATIONS: 1. Please start taking lisinopril 10mg DAILY. 2. Please start taking metoprolol succinate 12.5mg DAILY. 3. Please start taking spironolactone 25mg DAILY. 4. You can apply the triamcinolone cream to your forehead rash if it becomes itchy. FOLLOW-UP APPOINTMENTS: Date & Time: 12/14/2023 Provider: DARBY Pinto [facility] Medicine Seek medical attention if you have: * temperature above 101F * chest pain or trouble breathing * abdominal pain, nausea, vomiting * diarrhea, dark stools or bloody stools * any unanswered questions or concerns Call 911 if symptoms are severe. Please take good care of yourself. It has been a pleasure taking care of you. If you have any questions regarding your recent hospitalization please contact [facility] and request [facility] @ [phone]. Total Time Total Time Spent Total Time Spent (In Minutes): 60 Supervising Physician Co-Signing Physician Notes I have seen and examined the patient at bedside. Discussed the case with the collaborating advanced practitioner. I agree with the documentation as above. I have reviewed and confirmed the patients medical history, thefindings on physical examination, and the patients diagnosis and treatment plan with Jade Millan PA-C and agree with the information documented. Note has been edited as needed. Offers no new complaints on day of discharge Discussed with patient's daughter at bedside Blood pressure elevated--asymptomatic Will increase lisinopril to 10 mg daily Continue metoprolol succinate for NSVT Advised to monitor blood pressure at home and discuss with his physician for further adjustment of medications as needed Plan to discharge today
[2023-12-09 11:21] VITALS: BP 165/75; PULSE 62
== END 2023-12-09 12:12 | disposition home or self-care (01) | DRG 312 ==
LOC: ED 19:54 → SUATTDRO 22:32 → 4W 22:32